=== PATIENT | female | born 1935 | race Caucasian/White ===

== ENCOUNTER 2022-06-26 15:38 | Inpatient (IN) | payer MEDICARE, BC ==
[~2022-06-26] VITALS: Ht 149.9 cm; Wt 44.9 kg
[2022-06-26 16:47] LABS: BASOPHILS # (AUTO) 0.1 X10'3 (0-0.2); BASOPHILS % (AUTO) 0.6 % (0-1); EOSINOPHILS # (AUTO) 0.1 X10'3 (0-0.9); HEMATOCRIT 43.9 % (35.0-45.0); HEMOGLOBIN 14.4 g/dl (12.0-16.0); LYMPHOCYTES # (AUTO) 3.7 X10'3 (1.1-4.8); LYMPHOCYTES % (AUTO) 32.7 % (21-51); MEAN CORPUSCULAR HEMOGLOBIN 31.8 PG (27.0-31.0); MEAN CORPUSCULAR HGB CONC 32.8 g/dL (33.0-36.5); MEAN CORPUSCULAR VOLUME 96.9 FL (78-98); MEAN PLATELET VOLUME 9.3 FL (7.4-10.4); MONOCYTES # (AUTO) 0.7 X10'3 (0-0.9); MONOCYTES % (AUTO) 5.8 % (2-12); NEUTROPHILS # (AUTO) 6.7 X10'3 (1.8-7.7); NEUTROPHILS % (AUTO) 59.9 % (42-75); PLATELET COUNT 157 X10'3 (140-440); RED BLOOD COUNT 4.54 X10'6 (4.20-5.60); RED CELL DISTRIBUTION WIDTH 14.7 % (11.5-14.5); WHITE BLOOD COUNT 11.2 X10'3 (4.5-11.0)
[2022-06-26 16:48] LABS: ALANINE AMINOTRANSFERASE 19 U/L (12-78); ALBUMIN 4.5 G/DL (3.4-5.0); ALBUMIN/GLOBULIN RATIO 1.7 (1.1-1.5); ALKALINE PHOSPHATASE 56 IU/L (46-116); ANION GAP 13 (8-16); ASPARTATE AMINO TRANSFERASE 25 U/L (10-37); BILIRUBIN,TOTAL 0.7 MG/DL (0.1-1.0); BLOOD UREA NITROGEN 19 MG/DL (7-18); BUN/CREATININE RATIO 32.2 (6.6-38.0); CALCIUM 9.5 MG/DL (8.5-10.1); CHLORIDE 103 MMOL/L (99-107); CREATININE 0.59 MG/DL (0.40-0.90); GLUCOSE 80 MG/DL (70-104); POTASSIUM 3.9 MMOL/L (3.5-5.1); SODIUM 140 MMOL/L (135-145); TOTAL CARBON DIOXIDE 23.7 MMOL/L (24-32); TOTAL PROTEIN 7.2 G/DL (6.4-8.2); eGFR > 90 ML/MIN
[2022-06-26 17:00] LABS: COLOR,URINE YELLOW (Yellow); GLUCOSE, URINE NEGATIVE (Neg); KETONES,URINE TRACE mg/dl (Neg); LEUKOCYTE ESTERASE ,URINE MODERATE (Neg); NITRITES, URINE POSITIVE (Neg); OCCULT BLOOD,URINE TRACE-INTACT (Neg); PH,URINE 5.5 (4.8-8.0); PROTEIN,URINE NEGATIVE (Neg); UROBILINOGEN,URINE 0.2 E.U/dL (0.2-1.0)
[2022-06-26 17:16] LABS: UA COLLECTION TYPE CLN CATCH MIDSTREAM
[2022-06-26 17:17] LABS: CLARITY,URINE CLOUDY (Clear)
[2022-06-26 17:18] LABS: BACTERIA,URINE 4+ /HPF (Neg); WBC,URINE 50-100 /HPF (0-4)
[2022-06-26 17:19] LABS: SQUAMOUS EPITHELIAL CELL,UR FEW /LPF (FEW); TRANSITIONAL EPI CELLS,URINE FEW /HPF
[2022-06-26] MEDS ORDERED: CefTRIAXone/D5W-Rocephin 1gm 50 ML IV ONE (17:25)
[2022-06-26] MEDS: normal saline 500ml IV soln 500 ML IV SCH ×2 (18:43→20:40)
[2022-06-26] MEDS ORDERED: acetaminophen 650mg rectal suppository RC PRN (19:40)
[2022-06-26] MEDS ORDERED: magnesium hydroxide 30ml (MOM) UD suspension PO PRN (19:40)
[2022-06-26] MEDS ORDERED: HYDROcodone/acetaminophen 5mg/325mg tablet PO PRN (19:40)
[2022-06-26] MEDS ORDERED: acetaminophen 325mg tablet PO PRN ×2 (19:40)
[2022-06-26] MEDS ORDERED: potassium Cl 40MEQ/1/2NS 520ml 520 ML IV PRN (19:40)
[2022-06-26] MEDS ORDERED: mag hydrox/Alum hydrox/simeth 30ml oral suspension PO PRN (19:40)
[2022-06-26] MEDS ORDERED: magnesium Cl slow-release 64mg tablet PO PRN (19:40)
[2022-06-26] MEDS ORDERED: magnesium 4gm in 100ml NS 100 ML IV PRN (19:40)
[2022-06-26] MEDS ORDERED: ondansetron/PF 4mg/2ml inj IV PRN (19:40)
[2022-06-26] MEDS ORDERED: potassium Cl 20 mEq SR tablet PO PRN ×2 (19:40)
[2022-06-26] MEDS ORDERED: ondansetron 4mg rapidly disintigrating tab PO PRN (19:40)
[2022-06-26] MEDS: K and/or MAG REPLACEMENT MC SCH (20:00)
[2022-06-26 20:02] LABS: CREATINE KINASE 55 U/L (26-192)
[2022-06-26] MEDS: normal saline 1000ml 1,000 ML IV SCH (21:27)
--- NOTE | 2022-06-27 02:18 | NUR ---
Assumed care of patient. Patient is asleep, resting comfortablly in bed, no signs of distress, no needs at this time.
[2022-06-27 04:38] LABS: BASOPHILS # (AUTO) 0.1 X10'3 (0-0.2); EOSINOPHILS # (AUTO) 0.2 X10'3 (0-0.9); HEMATOCRIT 39.6 % (35.0-45.0); MEAN CORPUSCULAR HEMOGLOBIN 31.8 PG (27.0-31.0); MEAN PLATELET VOLUME 8.5 FL (7.4-10.4); NEUTROPHILS # (AUTO) 6.6 X10'3 (1.8-7.7); RED BLOOD COUNT 4.09 X10'6 (4.20-5.60); RED CELL DISTRIBUTION WIDTH 14.7 % (11.5-14.5)
[2022-06-27 04:39] LABS: BASOPHILS % (AUTO) 0.5 % (0-1); EOSINOPHILS % (AUTO) 1.6 % (0-6); LYMPHOCYTES # (AUTO) 7.3 X10'3 (1.1-4.8); LYMPHOCYTES % (AUTO) 48.5 % (21-51); MEAN CORPUSCULAR HGB CONC 32.8 g/dL (33.0-36.5); MEAN CORPUSCULAR VOLUME 96.9 FL (78-98); MONOCYTES # (AUTO) 0.9 X10'3 (0-0.9); MONOCYTES % (AUTO) 5.7 % (2-12); NEUTROPHILS % (AUTO) 43.7 % (42-75); PLATELET COUNT 167 X10'3 (140-440)
[2022-06-27 04:53] LABS: ALANINE AMINOTRANSFERASE 17 U/L (12-78); ALBUMIN 3.6 G/DL (3.4-5.0); ALBUMIN/GLOBULIN RATIO 1.5 (1.1-1.5); ALKALINE PHOSPHATASE 48 IU/L (46-116); ANION GAP 8 (8-16); ASPARTATE AMINO TRANSFERASE 19 U/L (10-37); BILIRUBIN,TOTAL 0.8 MG/DL (0.1-1.0); BLOOD UREA NITROGEN 18 MG/DL (7-18); BUN/CREATININE RATIO 34.6 (6.6-38.0); CALCIUM 8.7 MG/DL (8.5-10.1); CHLORIDE 106 MMOL/L (99-107); CREATININE 0.52 MG/DL (0.40-0.90); GLUCOSE 77 MG/DL (70-104); MAGNESIUM 1.9 MG/DL (1.5-2.4); SODIUM 141 MMOL/L (135-145); TOTAL CARBON DIOXIDE 26.9 MMOL/L (24-32); eGFR > 90 ML/MIN
[2022-06-27 05:13] LABS: TOTAL CELLS COUNTED 100
[2022-06-27 05:14] LABS: PLATELET ESTIMATE NORMAL; SMUDGE CELLS 1+
--- NOTE | 2022-06-27 06:40 | NUR ---
Patient assisted on a bedside commode, BM x1.
[2022-06-27] MEDS: K and/or MAG REPLACEMENT MC SCH ×2 (07:16→20:00)
[2022-06-27] MEDS: CefTRIAXone/D5W-Rocephin 1gm 50 ML IV SCH (07:16)
[2022-06-27] MEDS: normal saline 1000ml 1,000 ML IV SCH ×2 (07:16→22:50)
--- NOTE | 2022-06-27 10:03 | NUR ---
Patietn asleep. We will monitor.
[2022-06-27 13:00] VITALS: BP 129/68
--- NOTE | 2022-06-27 13:20 | NUR ---
Pt recieved to 356B via WC from ER, VSS, new PIV placed, pt stable. EVARISTO nurse paged for admission marce
[2022-06-27 18:00] VITALS: BP 155/76
--- NOTE | 2022-06-27 18:00 | NUR ---
I have reviewed and agree with all interventions, assessments performed, and documentation by Chely Groves LVN.
--- NOTE | 2022-06-27 18:40 | NUR ---
Patient in room [facility] 356. I have received report from JOHN BELL and had the opportunity to ask questions and assume patient care.
[2022-06-27] MEDS: heparin, porcine 5000 units/ml vial SQ SCH (20:30)
[2022-06-27 22:00] VITALS: BP_SYST 147; BP_SYST 150; BP_DIAS 65; BP_DIAS 70
[2022-06-27 23:00] VITALS: BP 147/65
[2022-06-28 05:54] LABS: BASOPHILS # (AUTO) 0.1 X10'3 (0-0.2); BASOPHILS % (AUTO) 0.7 % (0-1); EOSINOPHILS # (AUTO) 0.2 X10'3 (0-0.9); EOSINOPHILS % (AUTO) 1.8 % (0-6); HEMATOCRIT 40.1 % (35.0-45.0); HEMOGLOBIN 13.2 g/dl (12.0-16.0); LYMPHOCYTES # (AUTO) 5.3 X10'3 (1.1-4.8); LYMPHOCYTES % (AUTO) 43.2 % (21-51); MEAN CORPUSCULAR HEMOGLOBIN 31.8 PG (27.0-31.0); MEAN CORPUSCULAR HGB CONC 32.9 g/dL (33.0-36.5); MEAN CORPUSCULAR VOLUME 96.8 FL (78-98); MEAN PLATELET VOLUME 9.5 FL (7.4-10.4); MONOCYTES % (AUTO) 7.9 % (2-12); NEUTROPHILS # (AUTO) 5.7 X10'3 (1.8-7.7); NEUTROPHILS % (AUTO) 46.4 % (42-75); PLATELET COUNT 150 X10'3 (140-440); RED BLOOD COUNT 4.14 X10'6 (4.20-5.60); RED CELL DISTRIBUTION WIDTH 14.5 % (11.5-14.5); WHITE BLOOD COUNT 12.2 X10'3 (4.5-11.0)
[2022-06-28 05:59] LABS: ALANINE AMINOTRANSFERASE 15 U/L (12-78); ALBUMIN 3.6 G/DL (3.4-5.0); ALBUMIN/GLOBULIN RATIO 1.4 (1.1-1.5); ALKALINE PHOSPHATASE 53 IU/L (46-116); ANION GAP 5 (8-16); ASPARTATE AMINO TRANSFERASE 25 U/L (10-37); BILIRUBIN,TOTAL 0.5 MG/DL (0.1-1.0); BLOOD UREA NITROGEN 16 MG/DL (7-18); CALCIUM 8.8 MG/DL (8.5-10.1); CHLORIDE 107 MMOL/L (99-107); GLUCOSE 113 MG/DL (70-104); MAGNESIUM 1.7 MG/DL (1.5-2.4); POTASSIUM 3.8 MMOL/L (3.5-5.1); SODIUM 139 MMOL/L (135-145); TOTAL CARBON DIOXIDE 26.9 MMOL/L (24-32); TOTAL PROTEIN 6.1 G/DL (6.4-8.2); eGFR > 90 ML/MIN
[2022-06-28 06:23] VITALS: BP 140/60
--- NOTE | 2022-06-28 06:27 | NUR ---
Problems reprioritized. Patient report given, questions answered & plan of care reviewed with JOSE DANIEL INIGUEZ.
--- NOTE | 2022-06-28 06:44 | NUR ---
Patient in room [facility] 356. I have received report from Antwan INIGUEZ and had the opportunity to ask questions and assume patient care.
[2022-06-28 08:00] VITALS: BP_SYST 130; BP_SYST 144; BP_DIAS 55; BP_DIAS 60
[2022-06-28] MEDS: K and/or MAG REPLACEMENT MC SCH ×2 (08:00→19:57)
[2022-06-28] MEDS: CefTRIAXone/D5W-Rocephin 1gm 50 ML IV SCH (08:12)
[2022-06-28] MEDS: heparin, porcine 5000 units/ml vial SQ SCH (08:13)
[2022-06-28 10:23] VITALS: BP 144/69
--- NOTE | 2022-06-28 12:13 | NUR ---
Noted pt BMI 20.0 via standing scaled wt this admit; no prior scaled wt hx though pt appears WD/WN per ER note; likely maintains stable underweight status at baseline given advanced age. Addendum: 06/28/22 at [address] Amended: Links added.
[2022-06-28] MEDS ORDERED: APIX2.5T PO (14:01)
[2022-06-28] MEDS ORDERED: ATOR40TA72 PO (14:01)
[2022-06-28] MEDS ORDERED: CEFU500T66 PO (14:01)
[2022-06-28] MEDS ORDERED: CITA20TA26 PO (14:01)
[2022-06-28] MEDS ORDERED: AMLO5TAB16 PO (14:01)
[2022-06-28] MEDS ORDERED: OXYB5TAB16 PO (14:01)
[2022-06-28] MEDS: normal saline 1000ml 1,000 ML IV SCH (14:46)
[2022-06-28] MEDS: phenazopyridine 100mg tablet PO SCH ×2 (14:46→18:10)
--- NOTE | 2022-06-28 15:40 | NUR ---
Reviewed Herminia BELL Physical Assessment and agree with findings.
[2022-06-28 18:00] VITALS: BP_SYST 152; BP_SYST 163; BP_DIAS 67; BP_DIAS 76
--- NOTE | 2022-06-28 18:31 | NUR ---
Problems reprioritized. Patient report given, questions answered & plan of care reviewed with Antwan INIGUEZ.
--- NOTE | 2022-06-28 18:35 | NUR ---
Patient in room [facility] 356. I have received report from JOSE DANIEL INIGUEZ and had the opportunity to ask questions and assume patient care.
[2022-06-28] MEDS: oxybutynin 5mg tablet PO SCH (19:47)
[2022-06-28] MEDS: apixaban 2.5mg tablet PO SCH (19:47)
[2022-06-28 22:00] VITALS: BP 158/66
[2022-06-29] MEDS: normal saline 1000ml 1,000 ML IV SCH (03:31)
[2022-06-29 06:02] LABS: BASOPHILS # (AUTO) 0.1 X10'3 (0-0.2); BASOPHILS % (AUTO) 0.8 % (0-1); EOSINOPHILS # (AUTO) 0.3 X10'3 (0-0.9); EOSINOPHILS % (AUTO) 2.5 % (0-6); HEMATOCRIT 39.1 % (35.0-45.0); HEMOGLOBIN 12.9 g/dl (12.0-16.0); LYMPHOCYTES # (AUTO) 4.7 X10'3 (1.1-4.8); MEAN CORPUSCULAR HEMOGLOBIN 32.1 PG (27.0-31.0); MEAN PLATELET VOLUME 9.2 FL (7.4-10.4); MONOCYTES # (AUTO) 0.8 X10'3 (0-0.9); MONOCYTES % (AUTO) 7.2 % (2-12); NEUTROPHILS # (AUTO) 5.6 X10'3 (1.8-7.7); NEUTROPHILS % (AUTO) 48.5 % (42-75); PLATELET COUNT 144 X10'3 (140-440); RED BLOOD COUNT 4.03 X10'6 (4.20-5.60); RED CELL DISTRIBUTION WIDTH 14.8 % (11.5-14.5); WHITE BLOOD COUNT 11.5 X10'3 (4.5-11.0)
[2022-06-29 06:20] LABS: ALANINE AMINOTRANSFERASE 18 U/L (12-78); ALBUMIN 3.6 G/DL (3.4-5.0); ALBUMIN/GLOBULIN RATIO 1.5 (1.1-1.5); ALKALINE PHOSPHATASE 43 IU/L (46-116); ANION GAP 7 (8-16); ASPARTATE AMINO TRANSFERASE 20 U/L (10-37); BILIRUBIN,TOTAL 0.5 MG/DL (0.1-1.0); BLOOD UREA NITROGEN 10 MG/DL (7-18); BUN/CREATININE RATIO 24.4 (6.6-38.0); CALCIUM 8.9 MG/DL (8.5-10.1); CHLORIDE 109 MMOL/L (99-107); CREATININE 0.41 MG/DL (0.40-0.90); GLUCOSE 85 MG/DL (70-104); MAGNESIUM 1.7 MG/DL (1.5-2.4); POTASSIUM 3.7 MMOL/L (3.5-5.1); SODIUM 143 MMOL/L (135-145); TOTAL CARBON DIOXIDE 27.5 MMOL/L (24-32); eGFR > 90 ML/MIN
--- NOTE | 2022-06-29 06:25 | NUR ---
Problems reprioritized. Patient report given, questions answered & plan of care reviewed with JOSE DANIEL INIGUEZ.
--- NOTE | 2022-06-29 06:36 | NUR ---
Patient in room [facility] 356. I have received report from Maegan Issa RN and had the opportunity to ask questions and assume patient care.
[2022-06-29 07:07] VITALS: BP 180/70
[2022-06-29] MEDS: citalopram 20mg tablet PO SCH (07:53)
[2022-06-29] MEDS: atorvastatin 20mg tablet PO SCH (07:53)
[2022-06-29] MEDS: CefTRIAXone/D5W-Rocephin 1gm 50 ML IV SCH (07:53)
[2022-06-29] MEDS: phenazopyridine 100mg tablet PO SCH ×3 (07:54→17:59)
[2022-06-29] MEDS: amLODIPine 5mg tablet PO SCH (07:54)
[2022-06-29] MEDS: apixaban 2.5mg tablet PO SCH ×2 (07:54→19:48)
[2022-06-29] MEDS: oxybutynin 5mg tablet PO SCH ×2 (07:54→19:48)
[2022-06-29] MEDS: memantine 5mg tablet PO SCH (07:55)
[2022-06-29] MEDS: K and/or MAG REPLACEMENT MC SCH ×2 (08:00→20:00)
[2022-06-29] MEDS ORDERED: hydrALAZINE 20mg/ml inj. IV PRN (08:15)
[2022-06-29 10:00] VITALS: BP 113/59
--- NOTE | 2022-06-29 11:30 | NUR ---
Initial: Pt admit DX metabolic encephalopathy secondary to UTI, chronic dementia, and afib per EMR. PO ~63% avg initial regular diet meeting estimated needs. LBM 2/. No nutrition interventions at this time. Will continue to follow. Rec: 1. continue regular diet; encourage PO; assistance w/ meals PRN 2. routine bowel care 3. weekly wts Addendum: 06/29/22 at [address] Amended: Links added.
[2022-06-29 18:00] VITALS: BP 120/86
--- NOTE | 2022-06-29 18:40 | NUR ---
Problems reprioritized. Patient report given, questions answered & plan of care reviewed with Maegan Issa RN.
[2022-06-29 20:00] VITALS: BP 120/86
[2022-06-29 22:00] VITALS: BP 133/51
[2022-06-30 05:11] LABS: BASOPHILS # (AUTO) 0.1 X10'3 (0-0.2); BASOPHILS % (AUTO) 0.6 % (0-1); EOSINOPHILS # (AUTO) 0.3 X10'3 (0-0.9); EOSINOPHILS % (AUTO) 3.2 % (0-6); HEMATOCRIT 36.3 % (35.0-45.0); HEMOGLOBIN 12.1 g/dl (12.0-16.0); LYMPHOCYTES # (AUTO) 5.3 X10'3 (1.1-4.8); LYMPHOCYTES % (AUTO) 49.7 % (21-51); MEAN CORPUSCULAR HEMOGLOBIN 32.3 PG (27.0-31.0); MEAN CORPUSCULAR HGB CONC 33.4 g/dL (33.0-36.5); MEAN CORPUSCULAR VOLUME 96.7 FL (78-98); MEAN PLATELET VOLUME 8.8 FL (7.4-10.4); MONOCYTES # (AUTO) 0.8 X10'3 (0-0.9); MONOCYTES % (AUTO) 7.6 % (2-12); NEUTROPHILS # (AUTO) 4.2 X10'3 (1.8-7.7); NEUTROPHILS % (AUTO) 38.9 % (42-75); PLATELET COUNT 147 X10'3 (140-440); RED BLOOD COUNT 3.75 X10'6 (4.20-5.60); RED CELL DISTRIBUTION WIDTH 14.7 % (11.5-14.5); WHITE BLOOD COUNT 10.7 X10'3 (4.5-11.0)
[2022-06-30 05:23] LABS: ALANINE AMINOTRANSFERASE 20 U/L (12-78); ALBUMIN 3.2 G/DL (3.4-5.0); ALBUMIN/GLOBULIN RATIO 1.5 (1.1-1.5); ALKALINE PHOSPHATASE 41 IU/L (46-116); ANION GAP 7 (8-16); ASPARTATE AMINO TRANSFERASE 21 U/L (10-37); BILIRUBIN,TOTAL 0.4 MG/DL (0.1-1.0); BLOOD UREA NITROGEN 14 MG/DL (7-18); BUN/CREATININE RATIO 21.9 (6.6-38.0); CALCIUM 9.1 MG/DL (8.5-10.1); CHLORIDE 107 MMOL/L (99-107); CREATININE 0.64 MG/DL (0.40-0.90); GLUCOSE 95 MG/DL (70-104); MAGNESIUM 1.7 MG/DL (1.5-2.4); POTASSIUM 4.1 MMOL/L (3.5-5.1); SODIUM 141 MMOL/L (135-145); TOTAL CARBON DIOXIDE 27.1 MMOL/L (24-32); TOTAL PROTEIN 5.4 G/DL (6.4-8.2); eGFR 88 ML/MIN
[2022-06-30] MEDS: normal saline 1000ml 1,000 ML IV SCH (06:07)
--- NOTE | 2022-06-30 06:20 | NUR ---
Patient in room [facility] 356. I have received report from Alisa INIGUEZ and had the opportunity to ask questions and assume patient care.
[2022-06-30 06:27] VITALS: BP 135/62
[2022-06-30] MEDS: K and/or MAG REPLACEMENT MC SCH (08:00)
[2022-06-30] MEDS: memantine 5mg tablet PO SCH (08:14)
[2022-06-30] MEDS: atorvastatin 20mg tablet PO SCH (08:14)
[2022-06-30] MEDS: phenazopyridine 100mg tablet PO SCH (08:14)
[2022-06-30] MEDS: citalopram 20mg tablet PO SCH (08:14)
[2022-06-30] MEDS: oxybutynin 5mg tablet PO SCH (08:14)
[2022-06-30] MEDS: apixaban 2.5mg tablet PO SCH (08:14)
[2022-06-30] MEDS: amLODIPine 5mg tablet PO SCH (08:15)
[2022-06-30] MEDS: CefTRIAXone/D5W-Rocephin 1gm 50 ML IV SCH (08:43)
[2022-06-30 11:02] VITALS: BP 114/53
--- NOTE | 2022-06-30 14:39 | NUR ---
CIRCUS TRAIN SUPERVISOR documentation: I have reviewed and agree with all interventions, assessments performed and documented by Corine Rasheed LVN .
--- NOTE | 2022-06-30 15:54 | NUR ---
Called report to Wilma at [facility]. Patient is dressed and all belongings were gathered. Patient alert and stable for transfer. Patient left with [facility] personnel in the [facility]. Tele and IV removed
== END 2022-06-30 15:50 | DRG 871 ==
LOC: ER 15:39 → ED HOLD 19:43 → SUR 3N 06-27 13:01
PROVIDERS: ADMIT Family Medicine; ATTEND Family Medicine
DX: A41.9 Sepsis, unspecified organism (principal); G93.41 Metabolic encephalopathy; I48.20 Chronic atrial fibrillation, unspecified; N30.01 Acute cystitis with hematuria; B96.1 Klebsiella pneumoniae [K. pneumoniae] as the cause of diseases classified elsewhere; E78.5 Hyperlipidemia, unspecified; F32.A Depression, unspecified; I10 Essential (primary) hypertension; W18.39XA Other fall on same level, initial encounter; F03.90 Unspecified dementia, unspecified severity, without behavioral disturbance, psychotic disturbance, mood disturbance, and anxiety; N39.41 Urge incontinence; Z79.01 Long term (current) use of anticoagulants; Z85.3 Personal history of malignant neoplasm of breast; Z86.73 Personal history of transient ischemic attack (TIA), and cerebral infarction without residual deficits; Z95.0 Presence of cardiac pacemaker; Z88.2 Allergy status to sulfonamides; Z79.899 Other long term (current) drug therapy; Y93.89 Activity, other specified; Y92.098 Other place in other non-institutional residence as the place of occurrence of the external cause; Y99.8 Other external cause status
CPT/HCPCS: 36415; 70450; 71045; 80053; 81001; 82550; 82948; 83605; 83735; 84145; 84484; 85007; 85025; 87040; 87077; 87088; 87186; 93005; 97116; 97161; 97530; 99285; A6258; G0378; J0696; J1644; J7030; J7040

== ENCOUNTER 2023-02-22 15:08 | Inpatient (IN) | payer MEDICARE, BC ==
[~2023-02-22] VITALS: Ht 157.5 cm; Wt 45.5 kg
[~2023-02-22 15:08] MED LIST: AMLO5TAB16 PO; APIX2.5T PO; ATOR40TA72 PO; CITA20TA26 PO; OXYB5TAB16 PO
[2023-02-22 17:43] LABS: BASOPHILS % (AUTO) 0.2 % (0-1); EOSINOPHILS # (AUTO) 0.2 X10'3 (0-0.9); NEUTROPHILS # (AUTO) 8.5 X10'3 (1.8-7.7)
[2023-02-22 17:45] LABS: EOSINOPHILS % (AUTO) 1.4 % (0-6); HEMATOCRIT 36.3 % (35.0-45.0); HEMOGLOBIN 12.1 g/dl (12.0-16.0); LYMPHOCYTES # (AUTO) 5.9 X10'3 (1.1-4.8); LYMPHOCYTES % (AUTO) 37.6 % (21-51); MEAN CORPUSCULAR HEMOGLOBIN 29.6 PG (27.0-31.0); MEAN CORPUSCULAR HGB CONC 33.3 g/dL (33.0-36.5); MEAN CORPUSCULAR VOLUME 88.8 FL (78-98); MEAN PLATELET VOLUME 9.4 FL (7.4-10.4); MONOCYTES % (AUTO) 6.4 % (2-12); NEUTROPHILS % (AUTO) 54.4 % (42-75); PLATELET COUNT 145 X10'3 (140-440); RED BLOOD COUNT 4.08 X10'6 (4.20-5.60); WHITE BLOOD COUNT 15.6 X10'3 (4.5-11.0)
[2023-02-22 17:49] LABS: APTT 35 SECONDS (22-32); PROTHROMBIN TIME 10.6 SECONDS (9.0-12.0)
[2023-02-22 17:52] LABS: ALANINE AMINOTRANSFERASE 18 U/L (12-78); ALBUMIN 3.1 G/DL (3.4-5.0); ALBUMIN/GLOBULIN RATIO 1.1 (1.1-1.5); ALKALINE PHOSPHATASE 54 IU/L (46-116); ANION GAP 5 (8-16); ASPARTATE AMINO TRANSFERASE 18 U/L (10-37); BILIRUBIN,TOTAL 0.6 MG/DL (0.1-1.0); BLOOD UREA NITROGEN 16 MG/DL (7-18); BUN/CREATININE RATIO 24.6 (10.0-20.0); CALCIUM 8.9 MG/DL (8.5-10.1); CHLORIDE 102 MMOL/L (99-107); CREATININE 0.65 MG/DL (0.40-0.90); GLUCOSE 95 MG/DL (70-104); POTASSIUM 3.1 MMOL/L (3.5-5.1); SODIUM 136 MMOL/L (135-145); TOTAL PROTEIN 5.8 G/DL (6.4-8.2); eCRCL 43 ML/MIN; eGFR 86 ML/MIN
[2023-02-22 17:55] LABS: TROPONIN I HS, 0 HR 15 ng/L (4-50)
[2023-02-22] MEDS ORDERED: potassium chloride 8mEq ER tablet PO STA (18:25)
--- NOTE | 2023-02-22 18:30 | NUR ---
Patient resting in bed quietly with eyes open speaking with her daughter present at bedside. Pt in no acute distress. Respirations are even and unlabored.
[2023-02-22] MEDS ORDERED: normal saline 1000ml 1,000 ML IV ONE (20:25)
[2023-02-22] MEDS ORDERED: mag hydrox/Alum hydrox/simeth 30ml oral suspension PO PRN (20:45)
[2023-02-22] MEDS ORDERED: magnesium 2GM in 50ml NS 50 ML IV PRN (20:45)
[2023-02-22] MEDS ORDERED: magnesium hydroxide 30ml (MOM) UD suspension PO PRN (20:45)
[2023-02-22] MEDS ORDERED: potassium Cl 40MEQ/1/2NS 520ml 520 ML IV PRN (20:45)
[2023-02-22] MEDS ORDERED: magnesium 4gm in 100ml NS 100 ML IV PRN (20:45)
[2023-02-22] MEDS ORDERED: potassium Cl 20 mEq SR tablet PO PRN ×2 (20:45)
[2023-02-22] MEDS ORDERED: ondansetron/PF 4mg/2ml inj IV PRN (20:45)
[2023-02-22] MEDS ORDERED: magnesium Cl slow-release 64mg tablet PO PRN (20:45)
--- NOTE | 2023-02-22 21:30 | NUR ---
Patient resting in bed quietly with eyes open. Respirations are even and unlabored. Pt in no acute distress.
[2023-02-22] MEDS: potassium Cl 20mEq in NS 1,000 ML IV SCH (21:47)
--- NOTE | 2023-02-22 23:14 | NUR ---
PATIENT PLACED IN A HOSPITAL BED APPEARS TO BE RESTING COMFORTABLY NO NEEDS WHEN ASKED AT THIS TIME
--- NOTE | 2023-02-23 01:58 | NUR ---
Patient assisted to bedside commode. Patient placed back in bed. Pt resting quietly with eyes closed. Respirations are even and unlabored. Pt in no acute distress.
--- NOTE | 2023-02-23 03:47 | NUR ---
Patient resting in bed quietly with eyes closed. Respirations are even and unlabored. Pt in no acute distress.
--- NOTE | 2023-02-23 05:15 | NUR ---
Patient assisted to bedside commode by RN. Patient placed back into bed. Pt resting in bed with eyes closed. Pt in no acute distress. Respirations are even and unlabored.
[2023-02-23 06:57] LABS: C DIFF ANTIGEN POSITIVE (NEGATIVE); C DIFF SPECIMEN=DIARRHEA? ACCEPTABLE; C DIFFICILE TOXINS A&B POSITIVE (Neg)
--- NOTE | 2023-02-23 07:01 | NUR ---
Attempted to put a new peripheral IV x 2 without success. Patient requested another nurse to put an IV.
--- NOTE | 2023-02-23 07:08 | NUR ---
Note griselda in EDM - 02/23/23 at [address] Landaverde regarding positive C-diff result. received order to administer Vancomycin 125 mg PO x 1 for now. She said the will figure out the frequency of this drug
[2023-02-23] MEDS ORDERED: vancomycin 125mg/5ml ORAL solution 5ml UD oral syringe PO SCH (07:15)
--- NOTE | 2023-02-23 07:16 | NUR ---
Patient was notified that she has c-diff. I did explained to her that we will continue the isolation precaution and that c-diff is contagious.
[2023-02-23 07:46] LABS: BASOPHILS % (AUTO) 0.3 % (0-1); EOSINOPHILS # (AUTO) 0.1 X10'3 (0-0.9); EOSINOPHILS % (AUTO) 0.6 % (0-6); HEMATOCRIT 39.9 % (35.0-45.0); HEMOGLOBIN 13.1 g/dl (12.0-16.0); MEAN CORPUSCULAR HEMOGLOBIN 29.6 PG (27.0-31.0); MEAN CORPUSCULAR HGB CONC 32.8 g/dL (33.0-36.5); MEAN CORPUSCULAR VOLUME 90.2 FL (78-98); MEAN PLATELET VOLUME 9.2 FL (7.4-10.4); MONOCYTES # (AUTO) 1.6 X10'3 (0-0.9); MONOCYTES % (AUTO) 9.2 % (2-12); NEUTROPHILS % (AUTO) 72.9 % (42-75); PLATELET COUNT 180 X10'3 (140-440); RED BLOOD COUNT 4.42 X10'6 (4.20-5.60); RED CELL DISTRIBUTION WIDTH 15.1 % (11.5-14.5); WHITE BLOOD COUNT 17.7 X10'3 (4.5-11.0)
[2023-02-23] MEDS: docusate sod 100mg capsule PO SCH ×2 (07:47→20:00)
[2023-02-23] MEDS ORDERED: vancomycin 125mg/5ml ORAL solution 5ml UD oral syringe PO ONE (07:50)
[2023-02-23] MEDS: potassium Cl 20mEq in NS 1,000 ML IV SCH ×2 (08:13→16:45)
[2023-02-23 08:16] LABS: ALANINE AMINOTRANSFERASE 13 U/L (12-78); ALBUMIN 3.4 G/DL (3.4-5.0); ALBUMIN/GLOBULIN RATIO 1.1 (1.1-1.5); ALKALINE PHOSPHATASE 64 IU/L (46-116); ANION GAP 12 (8-16); ASPARTATE AMINO TRANSFERASE 22 U/L (10-37); BILIRUBIN,TOTAL 0.7 MG/DL (0.1-1.0); BLOOD UREA NITROGEN 12 MG/DL (7-18); BUN/CREATININE RATIO 16.4 (10.0-20.0); CALCIUM 8.8 MG/DL (8.5-10.1); CHLORIDE 104 MMOL/L (99-107); CREATININE 0.73 MG/DL (0.40-0.90); GLUCOSE 73 MG/DL (70-104); MAGNESIUM 1.8 MG/DL (1.5-2.4); POTASSIUM 3.5 MMOL/L (3.5-5.1); SODIUM 137 MMOL/L (135-145); TOTAL CARBON DIOXIDE 21.2 MMOL/L (24-32); TOTAL PROTEIN 6.4 G/DL (6.4-8.2); eCRCL 38 ML/MIN; eGFR 75 ML/MIN
[2023-02-23] MEDS: K and/or MAG REPLACEMENT MC SCH ×2 (12:17→20:00)
[2023-02-23] MEDS ORDERED: LORazepam 2 mg/ml vial IV ONE (12:30)
[2023-02-23] MEDS ORDERED: FLEC50TA28 PO (12:41)
[2023-02-23] MEDS ORDERED: MEMA7CAP2 PO (12:42)
--- NOTE | 2023-02-23 13:20 | NUR ---
Patient repeatedly going out of her room to go public restroom to have bm. Patient repeatedly told that she cant use public restroom due to c.diff. Patient frequently need to be reminded to get back to her room and use her bedside commode instead to prevent Addendum: 02/23/23 at 1431 by NANCY to prevent spreading the c-diff infection to others
[2023-02-23] MEDS: vancomycin 125mg/5ml ORAL solution 5ml UD oral syringe PO SCH ×2 (14:00→20:12)
--- NOTE | 2023-02-23 14:30 | NUR ---
Patient currently sleeping at this time, breathing unlabored. Daughter at bedside.
--- NOTE | 2023-02-23 16:54 | NUR ---
Called Dr. Landaverde about concern that if I put patient back to IV fluid, her IV might get pulled out again as I noticed patient's IV got out twice when she was in her room trying to leave her room and wander around. Per Dr. Landaverde, okay to leave her off from IVF running temporarily but will need to be hooked back if patient started having more diarrhea
[2023-02-23] MEDS ORDERED: LORazepam 2 mg/ml vial IV PRN (21:40)
[2023-02-23 22:51] LABS: BILIRUBIN,URINE NEGATIVE (Neg); CLARITY,URINE SLIGHTLY CLOUDY (Clear); COLOR,URINE YELLOW (Yellow); GLUCOSE, URINE NEGATIVE (Neg); KETONES,URINE 15 mg/dl (Neg); LEUKOCYTE ESTERASE ,URINE SMALL (Neg); NITRITES, URINE POSITIVE (Neg); OCCULT BLOOD,URINE MODERATE (Neg); PH,URINE 5.5 (4.8-8.0); PROTEIN,URINE TRACE mg/dl (Neg); UROBILINOGEN,URINE 0.2 E.U/dL (0.2-1.0)
[2023-02-23 23:26] LABS: UA COLLECTION TYPE STRAIGHT CATH
[2023-02-23 23:40] LABS: SQUAMOUS EPITHELIAL CELL,UR MODERATE /LPF (FEW)
[2023-02-23 23:41] LABS: BACTERIA,URINE 3+ /HPF (Neg); RBC,URINE 0-2 /HPF (0-2); WBC,URINE 20-30 /HPF (0-4)
[2023-02-23 23:42] LABS: RENAL CELLS, URINE FEW /HPF; TRANSITIONAL EPI CELLS,URINE FEW /HPF
[2023-02-24] MEDS: vancomycin 125mg/5ml ORAL solution 5ml UD oral syringe PO SCH ×4 (01:55→19:55)
[2023-02-24] MEDS: acetaminophen 325mg tablet PO PRN ×2 (01:56→02:10)
[2023-02-24] MEDS ORDERED: acetaminophen 1,000mg/100ml IV 100 ML IV ONE (02:30)
--- NOTE | 2023-02-24 02:32 | NUR ---
pt febrile, attempted to admin oral tylenol. pt uncoorperative, confused and refusing medication. pt incontinent of stool d/t c diff, so rectal tylenol not feasibole. called dr rodas and recieved order for 1gram IV acetaminophen once for fever.
[2023-02-24 03:48] LABS: BASOPHILS % (AUTO) 0.2 % (0-1); EOSINOPHILS # (AUTO) 0.1 X10'3 (0-0.9); EOSINOPHILS % (AUTO) 0.9 % (0-6); HEMOGLOBIN 11.2 g/dl (12.0-16.0); LYMPHOCYTES % (AUTO) 15.4 % (21-51); MEAN CORPUSCULAR HEMOGLOBIN 29.2 PG (27.0-31.0); MEAN CORPUSCULAR HGB CONC 32.9 g/dL (33.0-36.5); MEAN CORPUSCULAR VOLUME 88.8 FL (78-98); MEAN PLATELET VOLUME 9.2 FL (7.4-10.4); MONOCYTES # (AUTO) 1.4 X10'3 (0-0.9); MONOCYTES % (AUTO) 11.1 % (2-12); NEUTROPHILS # (AUTO) 9.3 X10'3 (1.8-7.7); NEUTROPHILS % (AUTO) 72.4 % (42-75); PLATELET COUNT 150 X10'3 (140-440); RED BLOOD COUNT 3.84 X10'6 (4.20-5.60); RED CELL DISTRIBUTION WIDTH 14.8 % (11.5-14.5); WHITE BLOOD COUNT 12.8 X10'3 (4.5-11.0)
[2023-02-24 03:58] LABS: ALANINE AMINOTRANSFERASE 15 U/L (12-78); ALBUMIN 2.5 G/DL (3.4-5.0); ALKALINE PHOSPHATASE 45 IU/L (46-116); ANION GAP 9 (8-16); ASPARTATE AMINO TRANSFERASE 25 U/L (10-37); BILIRUBIN,TOTAL 0.5 MG/DL (0.1-1.0); BLOOD UREA NITROGEN 7 MG/DL (7-18); BUN/CREATININE RATIO 15.9 (10.0-20.0); CALCIUM 7.9 MG/DL (8.5-10.1); CHLORIDE 105 MMOL/L (99-107); CREATININE 0.44 MG/DL (0.40-0.90); GLUCOSE 106 MG/DL (70-104); MAGNESIUM 1.7 MG/DL (1.5-2.4); SODIUM 137 MMOL/L (135-145); TOTAL CARBON DIOXIDE 23.1 MMOL/L (24-32); TOTAL PROTEIN 4.9 G/DL (6.4-8.2); eCRCL 63 ML/MIN; eGFR > 90 ML/MIN
[2023-02-24] MEDS: potassium Cl 20mEq in NS 1,000 ML IV SCH ×3 (04:00→19:56)
[2023-02-24] MEDS: potassium Cl 40MEQ/1/2NS 520ml 520 ML IV SCH ×2 (05:50→10:29)
[2023-02-24] MEDS: K and/or MAG REPLACEMENT MC SCH ×2 (07:29→20:00)
[2023-02-24] MEDS: docusate sod 100mg capsule PO SCH (07:31)
[2023-02-24 09:00] VITALS: BP 132/62; PULSE 66; RESP 15; TEMP 98; O2SAT 97
[2023-02-24 09:06] VITALS: RESP 15; O2SAT 97
[2023-02-24 10:00] VITALS: BP 131/64; PULSE 101; RESP 14; TEMP 97.6; O2SAT 96
[2023-02-24] MEDS ORDERED: potassium Cl 20 mEq SR tablet PO PRN ×2 (10:25)
[2023-02-24] MEDS ORDERED: potassium Cl 40MEQ/1/2NS 520ml 520 ML IV PRN (10:25)
[2023-02-24] MEDS ORDERED: magnesium 2GM in 50ml NS 50 ML IV PRN (10:25)
[2023-02-24] MEDS ORDERED: magnesium 4gm in 100ml NS 100 ML IV PRN (10:25)
[2023-02-24] MEDS ORDERED: magnesium Cl slow-release 64mg tablet PO PRN (10:25)
--- NOTE | 2023-02-24 11:07 | NUR ---
Malnutrition consult: Pt unsure of wt loss though with decreased appetite/PO intake per malnutrition risk screen with RN. Per EMR pt A/O x 1 and confused with dementia. Pt with scaled wt h/o 44.91 kg 06/27, current documented wt is 45.45 kg though not scaled. If accurate this would be slight wt gain of 0.54 kg. Pt currently on a heart healthy diet, documented to have refused first meal. Pt with no documented significant decrease in muscle strength or edema. Pt currently lacks a minimum of two criteria for malnutrition though will continue to follow closely and monitor s/s of malnutrition. Addendum: 02/24/23 at [address] Amended: Links added.
[2023-02-24] MEDS: CefTRIAXone/D5W-Rocephin 1gm 50 ML IV SCH (11:49)
[2023-02-24] MEDS: citalopram 20mg tablet PO SCH (15:10)
[2023-02-24] MEDS: memantine hcl 7mg SR capsule (24-hr) PO SCH (15:10)
[2023-02-24] MEDS: amLODIPine 5mg tablet PO SCH (15:10)
[2023-02-24 18:00] VITALS: BP 131/56; PULSE 70; RESP 16; TEMP 98.5; O2SAT 95
--- NOTE | 2023-02-24 18:20 | NUR ---
Patient in room [facility] 4017. I have received report from Pia INIGUEZ and had the opportunity to ask questions and assume patient care.
--- NOTE | 2023-02-24 18:20 | NUR ---
Report given to Nithya INIGUEZ, pt resting comfortably in bed. She ate some dinner but states it is very different then what she normally eats. No distress noted at this time. Daughter says she will return before visiting hours are over.
[2023-02-24] MEDS: oxybutynin 5mg tablet PO SCH (19:55)
[2023-02-24] MEDS: atorvastatin 20mg tablet PO SCH (19:55)
[2023-02-24] MEDS: apixaban 2.5mg tablet PO SCH (19:55)
[2023-02-24] MEDS: flecainide 50mg tablet PO SCH (19:55)
[2023-02-24 22:00] VITALS: BP 131/67; PULSE 92; RESP 18; TEMP 97.9; O2SAT 95
[2023-02-25] VITALS (7 sets, daily range): BP systolic 116–132; BP diastolic 66–87; PULSE 86–106; RESP 12–22; TEMP 97.5–98.7; O2SAT 93–97
[2023-02-25] MEDS: vancomycin 125mg/5ml ORAL solution 5ml UD oral syringe PO SCH ×4 (02:28→20:57)
[2023-02-25] MEDS: potassium Cl 20mEq in NS 1,000 ML IV SCH ×2 (03:50→14:43)
--- NOTE | 2023-02-25 06:12 | NUR ---
Problems reprioritized. Patient report given, questions answered & plan of care reviewed with Pia INIGUEZ.
[2023-02-25] MEDS: K and/or MAG REPLACEMENT MC SCH ×2 (08:00→20:00)
[2023-02-25 08:04] LABS: BASOPHILS # (AUTO) 0.1 X10'3 (0-0.2); BASOPHILS % (AUTO) 0.5 % (0-1); EOSINOPHILS # (AUTO) 0.2 X10'3 (0-0.9); EOSINOPHILS % (AUTO) 1.3 % (0-6); HEMATOCRIT 38.1 % (35.0-45.0); HEMOGLOBIN 12.7 g/dl (12.0-16.0); LYMPHOCYTES # (AUTO) 3.8 X10'3 (1.1-4.8); LYMPHOCYTES % (AUTO) 24.8 % (21-51); MEAN CORPUSCULAR HEMOGLOBIN 29.5 PG (27.0-31.0); MEAN CORPUSCULAR HGB CONC 33.3 g/dL (33.0-36.5); MEAN CORPUSCULAR VOLUME 88.7 FL (78-98); MEAN PLATELET VOLUME 9.7 FL (7.4-10.4); MONOCYTES # (AUTO) 1.1 X10'3 (0-0.9); MONOCYTES % (AUTO) 7.1 % (2-12); NEUTROPHILS # (AUTO) 10.2 X10'3 (1.8-7.7); NEUTROPHILS % (AUTO) 66.3 % (42-75); PLATELET COUNT 178 X10'3 (140-440); WHITE BLOOD COUNT 15.4 X10'3 (4.5-11.0)
[2023-02-25 08:09] LABS: ALANINE AMINOTRANSFERASE 12 U/L (12-78); ALBUMIN 2.5 G/DL (3.4-5.0); ALKALINE PHOSPHATASE 52 IU/L (46-116); ANION GAP 6 (8-16); ASPARTATE AMINO TRANSFERASE 19 U/L (10-37); BILIRUBIN,TOTAL 0.5 MG/DL (0.1-1.0); BLOOD UREA NITROGEN 2 MG/DL (7-18); BUN/CREATININE RATIO 4.3 (10.0-20.0); CALCIUM 8.2 MG/DL (8.5-10.1); CHLORIDE 107 MMOL/L (99-107); CREATININE 0.46 MG/DL (0.40-0.90); GLUCOSE 87 MG/DL (70-104); MAGNESIUM 1.6 MG/DL (1.5-2.4); POTASSIUM 4.1 MMOL/L (3.5-5.1); SODIUM 137 MMOL/L (135-145); TOTAL CARBON DIOXIDE 24.5 MMOL/L (24-32); eCRCL 61 ML/MIN; eGFR > 90 ML/MIN
[2023-02-25] MEDS ORDERED: memantine 5mg tablet PO SCH (09:06)
[2023-02-25] MEDS: citalopram 20mg tablet PO SCH (09:07)
[2023-02-25] MEDS: apixaban 2.5mg tablet PO SCH ×2 (09:07→20:56)
[2023-02-25] MEDS: flecainide 50mg tablet PO SCH ×2 (09:07→20:54)
[2023-02-25] MEDS: CefTRIAXone/D5W-Rocephin 1gm 50 ML IV SCH (09:07)
[2023-02-25] MEDS: oxybutynin 5mg tablet PO SCH ×2 (09:08→20:55)
[2023-02-25] MEDS: amLODIPine 5mg tablet PO SCH (09:08)
[2023-02-25] MEDS: memantine hcl 7mg SR capsule (24-hr) PO SCH (10:31)
--- NOTE | 2023-02-25 11:52 | NUR ---
Pt's daughter educated on importance of using gown and gloves while in mothers room and how easily cdiff can be transmitted. She stated understanding and seemed that she would be compliant but instead put on a mask, no gown and no gloves. She has been educated to wash hands with soap and water.
[2023-02-25] MEDS ORDERED: ondansetron 4mg rapidly disintigrating tab PO PRN (15:05)
--- NOTE | 2023-02-25 16:28 | NUR ---
Student's charting reviewed by instructor.
--- NOTE | 2023-02-25 18:37 | NUR ---
Report given to Dulce Bernardo. Pt cleaned up in bed,had one more bm and some slight confusion upon waking up.
[2023-02-25] MEDS: atorvastatin 20mg tablet PO SCH (20:55)
[2023-02-26] VITALS (8 sets, daily range): BP systolic 110–149; BP diastolic 43–78; PULSE 69–113; RESP 12–18; TEMP 96.9–98; O2SAT 94–97
[2023-02-26] MEDS: potassium Cl 20mEq in NS 1,000 ML IV SCH ×3 (00:20→23:06)
[2023-02-26] MEDS: vancomycin 125mg/5ml ORAL solution 5ml UD oral syringe PO SCH ×4 (02:23→20:15)
--- NOTE | 2023-02-26 05:38 | NUR ---
agree with assessment and charting of RAY Acuna
--- NOTE | 2023-02-26 06:31 | NUR ---
Problems reprioritized. Patient report given, questions answered & plan of care reviewed with
[2023-02-26 06:44] LABS: ALANINE AMINOTRANSFERASE 11 U/L (12-78); ALBUMIN 2.6 G/DL (3.4-5.0); ALKALINE PHOSPHATASE 55 IU/L (46-116); ANION GAP 5 (8-16); ASPARTATE AMINO TRANSFERASE 18 U/L (10-37); BILIRUBIN,TOTAL 0.5 MG/DL (0.1-1.0); BLOOD UREA NITROGEN 3 MG/DL (7-18); BUN/CREATININE RATIO 5.7 (10.0-20.0); CALCIUM 8.3 MG/DL (8.5-10.1); CHLORIDE 106 MMOL/L (99-107); CREATININE 0.53 MG/DL (0.40-0.90); GLUCOSE 85 MG/DL (70-104); MAGNESIUM 1.5 MG/DL (1.5-2.4); POTASSIUM 3.6 MMOL/L (3.5-5.1); SODIUM 138 MMOL/L (135-145); TOTAL CARBON DIOXIDE 26.6 MMOL/L (24-32); TOTAL PROTEIN 5.2 G/DL (6.4-8.2); eCRCL 53 ML/MIN; eGFR > 90 ML/MIN
[2023-02-26 06:50] LABS: BASOPHILS # (AUTO) 0.1 X10'3 (0-0.2); BASOPHILS % (AUTO) 0.7 % (0-1); EOSINOPHILS # (AUTO) 0.2 X10'3 (0-0.9); EOSINOPHILS % (AUTO) 1.5 % (0-6); HEMOGLOBIN 12.6 g/dl (12.0-16.0); LYMPHOCYTES # (AUTO) 5.9 X10'3 (1.1-4.8); LYMPHOCYTES % (AUTO) 36.7 % (21-51); MEAN CORPUSCULAR HEMOGLOBIN 29.2 PG (27.0-31.0); MEAN CORPUSCULAR HGB CONC 33.1 g/dL (33.0-36.5); MEAN CORPUSCULAR VOLUME 88.2 FL (78-98); MEAN PLATELET VOLUME 9.2 FL (7.4-10.4); MONOCYTES # (AUTO) 0.9 X10'3 (0-0.9); MONOCYTES % (AUTO) 5.8 % (2-12); NEUTROPHILS % (AUTO) 55.3 % (42-75); PLATELET COUNT 205 X10'3 (140-440); RED BLOOD COUNT 4.31 X10'6 (4.20-5.60); RED CELL DISTRIBUTION WIDTH 14.9 % (11.5-14.5); WHITE BLOOD COUNT 16.2 X10'3 (4.5-11.0)
--- NOTE | 2023-02-26 06:55 | NUR ---
Patient in room [facility]TH[facility] 4017. I have received report from santiago INIGUEZ and had the opportunity to ask questions and assume patient care.
[2023-02-26] MEDS: citalopram 20mg tablet PO SCH (07:49)
[2023-02-26] MEDS: CefTRIAXone/D5W-Rocephin 1gm 50 ML IV SCH (07:49)
[2023-02-26] MEDS: oxybutynin 5mg tablet PO SCH ×2 (07:50→20:15)
[2023-02-26] MEDS: memantine hcl 7mg SR capsule (24-hr) PO SCH (07:50)
[2023-02-26] MEDS: amLODIPine 5mg tablet PO SCH (07:50)
[2023-02-26] MEDS: K and/or MAG REPLACEMENT MC SCH ×2 (08:00→20:00)
[2023-02-26] MEDS: apixaban 2.5mg tablet PO SCH ×2 (08:43→20:15)
[2023-02-26] MEDS: flecainide 50mg tablet PO SCH ×2 (08:44→20:15)
[2023-02-26 14:16] LABS: BILIRUBIN,URINE NEGATIVE (Neg); CLARITY,URINE SLIGHTLY CLOUDY (Clear); COLOR,URINE YELLOW (Yellow); GLUCOSE, URINE NEGATIVE (Neg); KETONES,URINE TRACE mg/dl (Neg); LEUKOCYTE ESTERASE ,URINE NEGATIVE (Neg); NITRITES, URINE NEGATIVE (Neg); OCCULT BLOOD,URINE TRACE-INTACT (Neg); PROTEIN,URINE NEGATIVE (Neg); UROBILINOGEN,URINE 0.2 E.U/dL (0.2-1.0)
[2023-02-26 14:22] LABS: UA COLLECTION TYPE STRAIGHT CATH
[2023-02-26 14:26] LABS: WBC,URINE 0-4 /HPF (0-4)
[2023-02-26 14:27] LABS: BACTERIA,URINE NONE SEEN /HPF (Neg); SQUAMOUS EPITHELIAL CELL,UR NONE SEEN /LPF (FEW)
--- NOTE | 2023-02-26 18:19 | NUR ---
INCONTINENT OF STOOL X1.Slept most of shift. Seen by DR Landaverde, no new orders. Report given to Charlotte INIGUEZ
[2023-02-26] MEDS: atorvastatin 20mg tablet PO SCH (20:15)
[2023-02-27] MEDS: vancomycin 125mg/5ml ORAL solution 5ml UD oral syringe PO SCH ×4 (03:27→20:51)
--- NOTE | 2023-02-27 06:10 | NUR ---
Problems reprioritized. Patient report given, questions answered & plan of care reviewed with HIRA Burns.
[2023-02-27 06:27] LABS: BASOPHILS # (AUTO) 0.2 X10'3 (0-0.2); BASOPHILS % (AUTO) 1.1 % (0-1); EOSINOPHILS # (AUTO) 0.3 X10'3 (0-0.9); EOSINOPHILS % (AUTO) 1.6 % (0-6); HEMATOCRIT 36.4 % (35.0-45.0); HEMOGLOBIN 12.1 g/dl (12.0-16.0); LYMPHOCYTES # (AUTO) 8.2 X10'3 (1.1-4.8); LYMPHOCYTES % (AUTO) 46.6 % (21-51); MEAN CORPUSCULAR HEMOGLOBIN 29.5 PG (27.0-31.0); MEAN CORPUSCULAR HGB CONC 33.3 g/dL (33.0-36.5); MEAN CORPUSCULAR VOLUME 88.7 FL (78-98); MEAN PLATELET VOLUME 8.3 FL (7.4-10.4); MONOCYTES % (AUTO) 5.7 % (2-12); NEUTROPHILS # (AUTO) 7.9 X10'3 (1.8-7.7); PLATELET COUNT 225 X10'3 (140-440); RED BLOOD COUNT 4.11 X10'6 (4.20-5.60); RED CELL DISTRIBUTION WIDTH 15.1 % (11.5-14.5); WHITE BLOOD COUNT 17.6 X10'3 (4.5-11.0)
[2023-02-27 06:55] LABS: ALANINE AMINOTRANSFERASE 9 U/L (12-78); ALBUMIN 2.6 G/DL (3.4-5.0); ALBUMIN/GLOBULIN RATIO 1.1 (1.1-1.5); ALKALINE PHOSPHATASE 50 IU/L (46-116); ANION GAP 5 (8-16); ASPARTATE AMINO TRANSFERASE 18 U/L (10-37); BILIRUBIN,TOTAL 0.3 MG/DL (0.1-1.0); BLOOD UREA NITROGEN 3 MG/DL (7-18); BUN/CREATININE RATIO 5.3 (10.0-20.0); CALCIUM 8.5 MG/DL (8.5-10.1); CHLORIDE 108 MMOL/L (99-107); CREATININE 0.57 MG/DL (0.40-0.90); GLUCOSE 96 MG/DL (70-104); POTASSIUM 4.1 MMOL/L (3.5-5.1); SODIUM 140 MMOL/L (135-145); TOTAL CARBON DIOXIDE 27.3 MMOL/L (24-32); eCRCL 49 ML/MIN; eGFR > 90 ML/MIN
[2023-02-27 07:23] VITALS: BP 138/72; PULSE 76; RESP 16; TEMP 97.3; O2SAT 94
[2023-02-27 07:41] LABS: ACANTHOCYTES 1+; PLATELET ESTIMATE NORMAL
[2023-02-27 08:00] VITALS: RESP 17; O2SAT 98
[2023-02-27] MEDS: K and/or MAG REPLACEMENT MC SCH ×2 (08:00→20:00)
[2023-02-27] MEDS: amLODIPine 5mg tablet PO SCH (08:58)
[2023-02-27] MEDS: apixaban 2.5mg tablet PO SCH ×2 (08:58→20:50)
[2023-02-27] MEDS: flecainide 50mg tablet PO SCH ×2 (08:58→20:51)
[2023-02-27] MEDS: memantine hcl 7mg SR capsule (24-hr) PO SCH (08:58)
[2023-02-27] MEDS: citalopram 20mg tablet PO SCH (08:58)
[2023-02-27] MEDS: oxybutynin 5mg tablet PO SCH ×2 (08:59→20:51)
[2023-02-27] MEDS: potassium Cl 20mEq in NS 1,000 ML IV SCH ×2 (10:45→20:45)
[2023-02-27 18:00] VITALS: BP 102/58; PULSE 81; RESP 16; TEMP 98.2; O2SAT 96
--- NOTE | 2023-02-27 18:00 | NUR ---
I have reviewed and agree with interventions, assessments, and documentation by Katy Garcia LVN.
--- NOTE | 2023-02-27 18:00 | NUR ---
Patient in room [facility] 4017. I have received report from RAY Dickson and had the opportunity to ask questions and assume patient care. Patient sitting up in chair, just finished dinner and daughter at bedside. I will continue to monitor.
[2023-02-27 20:00] VITALS: RESP 16; O2SAT 96
[2023-02-27] MEDS: atorvastatin 20mg tablet PO SCH (20:51)
[2023-02-27 22:00] VITALS: BP 141/67; PULSE 82; RESP 16; TEMP 98.2; O2SAT 97
[2023-02-28] MEDS: vancomycin 125mg/5ml ORAL solution 5ml UD oral syringe PO SCH ×4 (02:14→21:48)
[2023-02-28 06:00] VITALS: BP 177/61; PULSE 63; RESP 15; TEMP 97.6; O2SAT 93
--- NOTE | 2023-02-28 06:46 | NUR ---
Problems reprioritized. Patient report given, questions answered & plan of care reviewed with HIRA Vega.
[2023-02-28 08:00] VITALS: RESP 20; O2SAT 96
[2023-02-28] MEDS: K and/or MAG REPLACEMENT MC SCH ×2 (08:00→20:00)
--- NOTE | 2023-02-28 09:47 | NUR ---
Patient in room [facility]TH[facility] 4017. I have received report from PHUC INIGUEZ and had the opportunity to ask questions and assume patient care.
[2023-02-28] MEDS: apixaban 2.5mg tablet PO SCH ×2 (10:00→21:48)
[2023-02-28] MEDS: oxybutynin 5mg tablet PO SCH (10:01)
[2023-02-28] MEDS: atorvastatin 20mg tablet PO SCH (10:01)
[2023-02-28] MEDS: citalopram 20mg tablet PO SCH (10:01)
[2023-02-28] MEDS: flecainide 50mg tablet PO SCH ×2 (10:01→21:48)
[2023-02-28] MEDS: potassium Cl 20mEq in NS 1,000 ML IV SCH ×2 (10:02→12:33)
[2023-02-28] MEDS: memantine hcl 7mg SR capsule (24-hr) PO SCH (10:03)
[2023-02-28 10:05] VITALS: BP 131/54; PULSE 68
[2023-02-28] MEDS: amLODIPine 5mg tablet PO SCH (10:05)
[2023-02-28 11:00] VITALS: BP 127/58; PULSE 65; RESP 20; TEMP 98.2; O2SAT 96
[2023-02-28 14:22] LABS: BASOPHILS # (AUTO) 0.1 X10'3 (0-0.2); BASOPHILS % (AUTO) 0.6 % (0-1); EOSINOPHILS # (AUTO) 0.2 X10'3 (0-0.9); HEMATOCRIT 40.6 % (35.0-45.0); HEMOGLOBIN 13.2 g/dl (12.0-16.0); LYMPHOCYTES % (AUTO) 27.2 % (21-51); MEAN CORPUSCULAR HEMOGLOBIN 29.1 PG (27.0-31.0); MEAN CORPUSCULAR HGB CONC 32.6 g/dL (33.0-36.5); MEAN PLATELET VOLUME 9.1 FL (7.4-10.4); MONOCYTES # (AUTO) 1.3 X10'3 (0-0.9); MONOCYTES % (AUTO) 5.8 % (2-12); NEUTROPHILS # (AUTO) 14.4 X10'3 (1.8-7.7); NEUTROPHILS % (AUTO) 65.4 % (42-75); PLATELET COUNT 298 X10'3 (140-440); RED BLOOD COUNT 4.56 X10'6 (4.20-5.60); RED CELL DISTRIBUTION WIDTH 15.2 % (11.5-14.5); WHITE BLOOD COUNT 22.1 X10'3 (4.5-11.0)
[2023-02-28 14:35] LABS: ALANINE AMINOTRANSFERASE 13 U/L (12-78); ALBUMIN/GLOBULIN RATIO 1.1 (1.1-1.5); ALKALINE PHOSPHATASE 64 IU/L (46-116); ANION GAP 4 (8-16); ASPARTATE AMINO TRANSFERASE 19 U/L (10-37); BILIRUBIN,TOTAL 0.4 MG/DL (0.1-1.0); BLOOD UREA NITROGEN 4 MG/DL (7-18); BUN/CREATININE RATIO 6.5 (10.0-20.0); CALCIUM 9.1 MG/DL (8.5-10.1); CHLORIDE 104 MMOL/L (99-107); CREATININE 0.62 MG/DL (0.40-0.90); GLUCOSE 116 MG/DL (70-104); POTASSIUM 3.9 MMOL/L (3.5-5.1); SODIUM 139 MMOL/L (135-145); TOTAL CARBON DIOXIDE 31.2 MMOL/L (24-32); TOTAL PROTEIN 5.8 G/DL (6.4-8.2); eCRCL 45 ML/MIN; eGFR > 90 ML/MIN
--- NOTE | 2023-02-28 17:21 | NUR ---
attempted to walk pt stated she has visitors and will walk later.
[2023-02-28 18:00] VITALS: BP 131/59; PULSE 83; RESP 16; TEMP 100; O2SAT 93
--- NOTE | 2023-02-28 18:26 | NUR ---
Problems reprioritized. Patient report given, questions answered & plan of care reviewed with lowell garibay.
--- NOTE | 2023-02-28 18:35 | NUR ---
Received report from Era INIGUEZ and assumed care of pt
[2023-02-28 22:00] VITALS: BP 122/57; PULSE 70; RESP 14; TEMP 97.8; O2SAT 95
[2023-03-01] MEDS: vancomycin 125mg/5ml ORAL solution 5ml UD oral syringe PO SCH ×4 (02:33→20:56)
[2023-03-01 08:00] VITALS: RESP 18; O2SAT 97
[2023-03-01] MEDS: K and/or MAG REPLACEMENT MC SCH ×2 (08:00→20:00)
[2023-03-01] MEDS: memantine hcl 7mg SR capsule (24-hr) PO SCH (08:02)
[2023-03-01] MEDS: apixaban 2.5mg tablet PO SCH ×2 (08:02→20:56)
[2023-03-01] MEDS: flecainide 50mg tablet PO SCH ×2 (08:03→20:55)
[2023-03-01] MEDS: citalopram 20mg tablet PO SCH (08:03)
[2023-03-01] MEDS: amLODIPine 5mg tablet PO SCH (08:15)
--- NOTE | 2023-03-01 09:15 | NUR ---
RECEIVED A CALL FROM ELISABETH IN THE LAB. INFORMED NURSE THAT PATIENT HAS POSITIVE BLOOD CULTURES FROM THE SPECIMAN DRAWN ON 02/28/23 FROM RIGHT ARM. CULTURE IS GROWING GRAM POSITIVE COCCI IN PAIRS AND SHORT CHAINS. PRIMARY NURSE CAN NOTIFIED. CAN WILL INFORM DR. LYONS.
--- NOTE | 2023-03-01 09:20 | NUR ---
Notified MD of culture results. no new orders at this time.
[2023-03-01] MEDS ORDERED: vancomycin/NS 1 GM ADD-VANTAGE 250 ML IV ONE (10:00)
[2023-03-01] MEDS ORDERED: diphenhydrAMINE 50 mg/ml inj IV ONE (12:25)
[2023-03-01 12:47] LABS: BASOPHILS # (AUTO) 0.2 X10'3 (0-0.2); BASOPHILS % (AUTO) 0.7 % (0-1); EOSINOPHILS # (AUTO) 0.3 X10'3 (0-0.9); EOSINOPHILS % (AUTO) 1.1 % (0-6); HEMATOCRIT 39.4 % (35.0-45.0); HEMOGLOBIN 12.5 g/dl (12.0-16.0); LYMPHOCYTES # (AUTO) 10.1 X10'3 (1.1-4.8); LYMPHOCYTES % (AUTO) 35.1 % (21-51); MEAN CORPUSCULAR HEMOGLOBIN 28.6 PG (27.0-31.0); MEAN CORPUSCULAR HGB CONC 31.8 g/dL (33.0-36.5); MEAN CORPUSCULAR VOLUME 90.1 FL (78-98); MEAN PLATELET VOLUME 9.3 FL (7.4-10.4); MONOCYTES # (AUTO) 1.8 X10'3 (0-0.9); MONOCYTES % (AUTO) 6.2 % (2-12); NEUTROPHILS # (AUTO) 16.5 X10'3 (1.8-7.7); NEUTROPHILS % (AUTO) 56.9 % (42-75); PLATELET COUNT 294 X10'3 (140-440); RED BLOOD COUNT 4.37 X10'6 (4.20-5.60); RED CELL DISTRIBUTION WIDTH 15.1 % (11.5-14.5)
[2023-03-01 12:50] LABS: GLUCOSE 105 MG/DL (70-104); POTASSIUM 3.6 MMOL/L (3.5-5.1); SODIUM 139 MMOL/L (135-145); WHITE BLOOD COUNT 28.9 X10'3 (4.5-11.0)
[2023-03-01 12:51] LABS: ALANINE AMINOTRANSFERASE 16 U/L (12-78); ALBUMIN/GLOBULIN RATIO 1.1 (1.1-1.5); ALKALINE PHOSPHATASE 61 IU/L (46-116); ANION GAP 5 (8-16); ASPARTATE AMINO TRANSFERASE 18 U/L (10-37); BILIRUBIN,TOTAL 0.4 MG/DL (0.1-1.0); BLOOD UREA NITROGEN 9 MG/DL (7-18); BUN/CREATININE RATIO 12.9 (10.0-20.0); CALCIUM 8.8 MG/DL (8.5-10.1); CHLORIDE 103 MMOL/L (99-107); TOTAL CARBON DIOXIDE 31.3 MMOL/L (24-32); TOTAL PROTEIN 5.8 G/DL (6.4-8.2); eCRCL 40 ML/MIN; eGFR 79 ML/MIN
--- NOTE | 2023-03-01 13:00 | NUR ---
aware of critical WBC. No new orders.
[2023-03-01 13:25] LABS: TOTAL CELLS COUNTED 100
[2023-03-01 13:26] LABS: BURR CELLS 1+; ELLIPTOCYTES FEW; PLATELET ESTIMATE NORMAL
[2023-03-01 13:28] LABS: ACANTHOCYTES FEW
--- NOTE | 2023-03-01 15:25 | NUR ---
PLATE SHEAR OPERATOR documentation: I have reviewed and agree with all interventions, assessments performed and documented by Yessi Savage LVN.
[2023-03-01] MEDS: potassium Cl 20mEq in NS 1,000 ML IV SCH (15:33)
--- NOTE | 2023-03-01 17:02 | NUR ---
AGER ID: [id number] MESSAGE: [id number] [facility] critical lab- culture from yesterday's draw, right arm came back gram positive for cocci and clusters. responds without new orders at this time.
[2023-03-01 17:21] VITALS: RESP 16; O2SAT 92
--- NOTE | 2023-03-01 17:46 | NUR ---
Patient has intermittent incontinence and requires 1 to 1 assistance to the commode or the bathroom. Addendum: 03/01/23 at 1749 by Judy RENNER Amended: Links added.
[2023-03-01 18:00] VITALS: BP 119/58; PULSE 70; RESP 14; TEMP 98.6; O2SAT 92
[2023-03-01 20:00] VITALS: RESP 16; O2SAT 94
[2023-03-01] MEDS: atorvastatin 20mg tablet PO SCH (20:55)
[2023-03-01] MEDS: diatr meglu/diatrizoate 30ml oral sol.-(3 dose) bottle PO SCH (20:56)
--- NOTE | 2023-03-01 21:10 | NUR ---
PER REPORT PT HAD A REACTION TO IV VANCO AND WAS GIVEN BENADRYL THIS AFTER NOON. MED WAS UNFORTUNATELY CONTINUED ON THE EMAR. PT IS NOT WANTING TO GO THROUGH RECEIVING IV VANCO AND THEN GETTING BENADRYL. PHARM AWARE OF INCIDENT AND MADE AWARE OF DR. LYONS PROGRESS NOTE REGARDING THE INCIDENT AND TO RECEIVE PO VANCO.
[2023-03-01 22:00] VITALS: BP 121/56; PULSE 82; RESP 16; TEMP 98.4; O2SAT 96
[2023-03-01] MEDS ORDERED: VANCOMYCIN 750MG IV in NS 250 ML IV SCH (22:00)
[2023-03-02] MEDS: potassium Cl 20mEq in NS 1,000 ML IV SCH (01:09)
[2023-03-02] MEDS: vancomycin 125mg/5ml ORAL solution 5ml UD oral syringe PO SCH ×4 (02:50→21:44)
--- NOTE | 2023-03-02 05:23 | NUR ---
RAY documentation: I have reviewed and agree with all interventions, assessments performed and documented by ALEJO BELL. Addendum: 03/02/23 at 0524 by Montserrat De La Vega RN Amended: Links added.
[2023-03-02 06:00] VITALS: BP 151/70; PULSE 71; RESP 13; TEMP 98.1; O2SAT 96
--- NOTE | 2023-03-02 06:40 | NUR ---
Patient in room [facility]TH[facility] 4017. I have received report from HIRA Mariano and had the opportunity to ask questions and assume patient care.
[2023-03-02] MEDS: K and/or MAG REPLACEMENT MC SCH ×2 (08:00→20:00)
[2023-03-02 09:30] VITALS: RESP 18; O2SAT 95
[2023-03-02] MEDS: apixaban 2.5mg tablet PO SCH ×2 (09:39→21:45)
[2023-03-02] MEDS: flecainide 50mg tablet PO SCH ×2 (09:39→21:45)
[2023-03-02] MEDS: citalopram 20mg tablet PO SCH (09:39)
[2023-03-02] MEDS: diatr meglu/diatrizoate 30ml oral sol.-(3 dose) bottle PO SCH ×2 (09:39→11:27)
[2023-03-02] MEDS: amLODIPine 5mg tablet PO SCH (09:39)
[2023-03-02 10:00] VITALS: BP 105/53; PULSE 82; RESP 18; TEMP 98.3; O2SAT 95
[2023-03-02 10:11] LABS: BASOPHILS # (AUTO) 0.1 X10'3 (0-0.2); BASOPHILS % (AUTO) 0.4 % (0-1); EOSINOPHILS # (AUTO) 0.3 X10'3 (0-0.9); HEMATOCRIT 34.7 % (35.0-45.0); HEMOGLOBIN 11.5 g/dl (12.0-16.0); LYMPHOCYTES # (AUTO) 7.9 X10'3 (1.1-4.8); LYMPHOCYTES % (AUTO) 32.2 % (21-51); MEAN CORPUSCULAR HEMOGLOBIN 29.4 PG (27.0-31.0); MEAN CORPUSCULAR VOLUME 89.1 FL (78-98); MEAN PLATELET VOLUME 8.9 FL (7.4-10.4); MONOCYTES # (AUTO) 1.2 X10'3 (0-0.9); MONOCYTES % (AUTO) 4.9 % (2-12); NEUTROPHILS % (AUTO) 61.5 % (42-75); PLATELET COUNT 241 X10'3 (140-440); RED CELL DISTRIBUTION WIDTH 15.1 % (11.5-14.5); WHITE BLOOD COUNT 24.4 X10'3 (4.5-11.0)
[2023-03-02 10:28] LABS: ALANINE AMINOTRANSFERASE 16 U/L (12-78); ALBUMIN 2.6 G/DL (3.4-5.0); ALKALINE PHOSPHATASE 52 IU/L (46-116); ANION GAP 4 (8-16); ASPARTATE AMINO TRANSFERASE 17 U/L (10-37); BILIRUBIN,TOTAL 0.3 MG/DL (0.1-1.0); BLOOD UREA NITROGEN 10 MG/DL (7-18); BUN/CREATININE RATIO 16.1 (10.0-20.0); CALCIUM 8.6 MG/DL (8.5-10.1); CHLORIDE 105 MMOL/L (99-107); CREATININE 0.62 MG/DL (0.40-0.90); GLUCOSE 137 MG/DL (70-104); POTASSIUM 3.7 MMOL/L (3.5-5.1); SODIUM 138 MMOL/L (135-145); TOTAL CARBON DIOXIDE 29.3 MMOL/L (24-32); TOTAL PROTEIN 5.3 G/DL (6.4-8.2); eCRCL 45 ML/MIN; eGFR > 90 ML/MIN
[2023-03-02] MEDS: nystatin 15 GM powder TP SCH ×2 (10:46→21:45)
[2023-03-02] MEDS ORDERED: iohexol 300mg/ml 100ml inj. ONE (11:55)
--- NOTE | 2023-03-02 13:22 | NUR ---
PRESSURE ULCER EDUCATION: DEFINITION: A pressure ulcer is an area of skin that breaks down when you stay in one position too long. The constant pressure against the skin reduces the blood flow to that area and the affected tissue dies. CAUSES: "Being bedridden or in a wheelchair "Fragile skin "Having a chronic condition, such as diabetes or vascular disease "Inability to move certain parts of your body without assistance "Older age "Incontinence of urine or stool SYMPTOMS: "A reddened area that DOES NOT turn white when pressed on - this can be the beginning of a pressure ulcer "A blister, deep sore or a crater - these can be advanced pressure ulcers FIRST AID: "Relieve the pressure on this area "Keep the area clean and dry "Call your primary doctor if you see any of the above symptoms "DO NOT massage the area "DO NOT use a donut shaped or ring shaped pillow- these actually interfere with the blood flow and cause complications PREVENTION: "Check for pressure ulcers everyday "Change position at least every two hours to relieve pressure "Use items that help relieve pressure- pillows, sheepskin, foam padding, and powders. "Keep skin clean and dry "Eat healthy well balanced meals "Exercise daily IF YOU SEE ANY OF THESE SYMPTOMS WHILE IN THE HOSPITAL - TELL YOUR NURSE IMMEDIATELY. IF YOU SEE ANY OF THESE SYMPTOMS WHILE AT HOME OR HAVE ANY QUESTIONS OR CONCERNS ABOUT PRESSURE ULCERS - CALL YOUR PRIMARY DOCTOR IMMEDIATELY. Addendum: 03/02/23 at 1322 by Prem Dominique RN Amended: Links added.
[2023-03-02 18:00] VITALS: BP 138/67; PULSE 77; RESP 16; TEMP 98.3; O2SAT 93
--- NOTE | 2023-03-02 18:40 | NUR ---
Problems reprioritized. Patient report given, questions answered & plan of care reviewed with HIRA Mariano.
[2023-03-02] MEDS: normal saline 1000ml 1,000 ML IV SCH (19:45)
[2023-03-02 20:00] VITALS: RESP 16; O2SAT 93
[2023-03-02] MEDS ORDERED: atorvastatin 20mg tablet PO SCH (21:00)
[2023-03-02] MEDS ORDERED: VANCOMYCIN LEVEL IV ONE (21:30)
[2023-03-02 23:00] VITALS: BP 161/89; PULSE 79; RESP 16; TEMP 97.5; O2SAT 95
[2023-03-03] MEDS: vancomycin 125mg/5ml ORAL solution 5ml UD oral syringe PO SCH ×3 (02:46→14:18)
[2023-03-03 06:00] VITALS: BP 138/88; PULSE 84; RESP 16; TEMP 97.5; O2SAT 96
--- NOTE | 2023-03-03 06:30 | NUR ---
Patient in room [facility]TH[facility] 4017. I have received report from HIRA Mariano and had the opportunity to ask questions and assume patient care.
[2023-03-03] MEDS ORDERED: CITALOpram 10mg tablet PO SCH (08:00)
[2023-03-03 08:34] LABS: BASOPHILS # (AUTO) 0.1 X10'3 (0-0.2); BASOPHILS % (AUTO) 0.3 % (0-1); EOSINOPHILS # (AUTO) 0.2 X10'3 (0-0.9); EOSINOPHILS % (AUTO) 1.1 % (0-6); HEMATOCRIT 37.3 % (35.0-45.0); HEMOGLOBIN 12.2 g/dl (12.0-16.0); LYMPHOCYTES # (AUTO) 8.6 X10'3 (1.1-4.8); LYMPHOCYTES % (AUTO) 40.7 % (21-51); MEAN CORPUSCULAR HEMOGLOBIN 29.2 PG (27.0-31.0); MEAN CORPUSCULAR HGB CONC 32.6 g/dL (33.0-36.5); MEAN CORPUSCULAR VOLUME 89.6 FL (78-98); MEAN PLATELET VOLUME 8.6 FL (7.4-10.4); MONOCYTES % (AUTO) 4.6 % (2-12); NEUTROPHILS # (AUTO) 11.3 X10'3 (1.8-7.7); NEUTROPHILS % (AUTO) 53.3 % (42-75); PLATELET COUNT 232 X10'3 (140-440); RED BLOOD COUNT 4.16 X10'6 (4.20-5.60); RED CELL DISTRIBUTION WIDTH 15.1 % (11.5-14.5); WHITE BLOOD COUNT 21.1 X10'3 (4.5-11.0)
[2023-03-03 09:08] LABS: ALANINE AMINOTRANSFERASE 16 U/L (12-78); ALBUMIN 2.8 G/DL (3.4-5.0); ALKALINE PHOSPHATASE 56 IU/L (46-116); ANION GAP 3 (8-16); ASPARTATE AMINO TRANSFERASE 11 U/L (10-37); BILIRUBIN,TOTAL 0.4 MG/DL (0.1-1.0); BLOOD UREA NITROGEN 8 MG/DL (7-18); BUN/CREATININE RATIO 14.8 (10.0-20.0); CALCIUM 8.8 MG/DL (8.5-10.1); CHLORIDE 106 MMOL/L (99-107); CREATININE 0.54 MG/DL (0.40-0.90); GLUCOSE 123 MG/DL (70-104); POTASSIUM 3.7 MMOL/L (3.5-5.1); SODIUM 140 MMOL/L (135-145); TOTAL CARBON DIOXIDE 30.7 MMOL/L (24-32); TOTAL PROTEIN 5.7 G/DL (6.4-8.2); eCRCL 52 ML/MIN; eGFR > 90 ML/MIN
[2023-03-03] MEDS: K and/or MAG REPLACEMENT MC SCH (09:22)
[2023-03-03 09:45] VITALS: RESP 16; O2SAT 99
[2023-03-03] MEDS: flecainide 50mg tablet PO SCH (09:56)
[2023-03-03] MEDS: apixaban 2.5mg tablet PO SCH (09:56)
[2023-03-03] MEDS: nystatin 15 GM powder TP SCH (09:57)
[2023-03-03 10:00] VITALS: BP 117/65; PULSE 80; RESP 16; TEMP 98; O2SAT 99
[2023-03-03] MEDS: normal saline 1000ml 1,000 ML IV SCH (10:33)
--- NOTE | 2023-03-03 14:30 | NUR ---
Pt transferred to [facility] via [facility]. IV DC'd, tip intact. All belongings sent w/pt.
== END 2023-03-03 14:30 | DRG 871 ==
LOC: ER 15:08 → ED HOLD 20:52 → ORTHO 4S 02-24 08:25
PROVIDERS: ADMIT Internal Medicine; ATTEND Internal Medicine
PROC: BW211ZZ Computerized Tomography (CT Scan) of Abdomen and Pelvis using Low Osmolar Contrast (ICD-10-PCS; principal; 2023-03-02)
DX: A41.9 Sepsis, unspecified organism (principal); G93.41 Metabolic encephalopathy; A04.72 Enterocolitis due to Clostridium difficile, not specified as recurrent; N39.0 Urinary tract infection, site not specified; E78.5 Hyperlipidemia, unspecified; I48.91 Unspecified atrial fibrillation; F32.A Depression, unspecified; E87.6 Hypokalemia; E86.0 Dehydration; I10 Essential (primary) hypertension; S00.93XA Contusion of unspecified part of head, initial encounter; W06.XXXA Fall from bed, initial encounter; Y93.89 Activity, other specified; Y92.89 Other specified places as the place of occurrence of the external cause; Y99.8 Other external cause status; Z85.3 Personal history of malignant neoplasm of breast; Z87.440 Personal history of urinary (tract) infections; Z88.2 Allergy status to sulfonamides; Z79.899 Other long term (current) drug therapy; Z86.73 Personal history of transient ischemic attack (TIA), and cerebral infarction without residual deficits
CPT/HCPCS: 36415; 70450; 71045; 74177; 80053; 81001; 83605; 83735; 84132; 84145; 84484; 85007; 85008; 85025; 85610; 85651; 85730; 87040; 87077; 87081; 87186; 87324; 87449; 93005; 97116; 97161; 97530; 97535; 99285; A4353; A4615; A6250; C1758; G0378; J0131; J0696; J1200; J2060; J3370; J3480; J3490; J7030; Q9963; Q9967

== ENCOUNTER 2023-04-03 11:19 | Inpatient (IN) | payer MEDICARE, BC ==
[~2023-04-03] VITALS: Ht 157.5 cm; Wt 67.0 kg
[~2023-04-03 11:19] MED LIST changes: +FLEC50TA28 PO; +MEMA7CAP2 PO
[2023-04-03] MEDS ORDERED: normal saline 1000ml 1,000 ML IV ONE (12:25)
--- NOTE | 2023-04-03 12:30 | NUR ---
KATARZYNA [SON] [phone] KEEP UP TO DATE.
[2023-04-03 13:00] LABS: C DIFF ANTIGEN POSITIVE (NEGATIVE); C DIFF SPECIMEN=DIARRHEA? ACCEPTABLE; C DIFFICILE TOXINS A&B POSITIVE (Neg)
[2023-04-03 13:22] LABS: APTT 33 SECONDS (22-32); INR 1.1 INR; PROTHROMBIN TIME 11.4 SECONDS (9.0-12.0)
[2023-04-03 13:25] LABS: ALANINE AMINOTRANSFERASE 11 U/L (12-78); ALBUMIN 3.1 G/DL (3.4-5.0); ALBUMIN/GLOBULIN RATIO 1.1 (1.1-1.5); ALKALINE PHOSPHATASE 58 IU/L (46-116); ANION GAP 10 (8-16); ASPARTATE AMINO TRANSFERASE 20 U/L (10-37); BILIRUBIN,TOTAL 1.2 MG/DL (0.1-1.0); BLOOD UREA NITROGEN 18 MG/DL (7-18); BUN/CREATININE RATIO 23.7 (10.0-20.0); CALCIUM 8.4 MG/DL (8.5-10.1); CHLORIDE 100 MMOL/L (99-107); CREATININE 0.76 MG/DL (0.40-0.90); GLUCOSE 127 MG/DL (70-104); LIPASE 10 U/L (16-77); SODIUM 135 MMOL/L (135-145); TOTAL CARBON DIOXIDE 24.7 MMOL/L (24-32); TOTAL PROTEIN 5.8 G/DL (6.4-8.2); eCRCL 40 ML/MIN; eGFR 72 ML/MIN
[2023-04-03] MEDS ORDERED: iohexol 300mg/ml 100ml inj. ONE (13:25)
[2023-04-03 13:41] LABS: BASOPHILS % (AUTO) 0.3 % (0-1); EOSINOPHILS % (AUTO) 0 % (0-6); HEMATOCRIT 40.4 % (35.0-45.0); HEMOGLOBIN 13.3 g/dl (12.0-16.0); LYMPHOCYTES % (AUTO) 10.4 % (21-51); MEAN CORPUSCULAR HEMOGLOBIN 29.5 PG (27.0-31.0); MEAN CORPUSCULAR HGB CONC 32.8 g/dL (33.0-36.5); MEAN CORPUSCULAR VOLUME 89.8 FL (78-98); MONOCYTES # (AUTO) 1.6 X10'3 (0-0.9); MONOCYTES % (AUTO) 7.9 % (2-12); NEUTROPHILS # (AUTO) 15.9 X10'3 (1.8-7.7); NEUTROPHILS % (AUTO) 81.4 % (42-75); PLATELET COUNT 138 X10'3 (140-440); RED CELL DISTRIBUTION WIDTH 16.2 % (11.5-14.5); WHITE BLOOD COUNT 19.6 X10'3 (4.5-11.0)
[2023-04-03] MEDS ORDERED: vancomycin 125mg/5ml ORAL solution 5ml UD oral syringe PO ONE (14:00)
[2023-04-03 14:38] LABS: POTASSIUM 2.8 MMOL/L (3.5-5.1)
[2023-04-03] MEDS ORDERED: potassium CL 10mEq/100ml bag 100 ML IV SCH (14:55)
[2023-04-03] MEDS ORDERED: magnesium 4gm in 100ml NS 100 ML IV PRN (15:45)
[2023-04-03] MEDS ORDERED: magnesium Cl slow-release 64mg tablet PO PRN (15:45)
[2023-04-03] MEDS ORDERED: acetaminophen 325mg tablet PO PRN (15:45)
[2023-04-03] MEDS ORDERED: potassium Cl 40MEQ/1/2NS 520ml 520 ML IV PRN (15:45)
[2023-04-03] MEDS ORDERED: mag hydrox/Alum hydrox/simeth 30ml oral suspension PO PRN (15:45)
[2023-04-03] MEDS ORDERED: HYDROcodone/acetaminophen 5mg/325mg tablet PO PRN (15:45)
[2023-04-03] MEDS ORDERED: potassium Cl 20 mEq SR tablet PO PRN (15:45)
[2023-04-03] MEDS ORDERED: ondansetron/PF 4mg/2ml inj IV PRN (15:45)
[2023-04-03] MEDS ORDERED: HYDROcodone/acetaminophen 10/325mg tab PO PRN (15:45)
[2023-04-03] MEDS ORDERED: normal saline 1000ml 1,000 ML IV SCH (15:55)
--- NOTE | 2023-04-03 15:56 | NUR ---
PT REPOSITIONED, CLEANED AND CHANGED. ZINC OXIDE PLACED ON BUTTOCKS.
[2023-04-03] MEDS: zinc oxide ointment 30gm tube TP SCH (15:57)
[2023-04-03] MEDS: normal saline 1000ml 1,000 ML IV SCH (16:57)
[2023-04-03] MEDS: potassium Cl 20 mEq SR tablet PO PRN (17:04)
[2023-04-03] MEDS: flecainide 50mg tablet PO SCH (20:00)
[2023-04-03] MEDS ORDERED: heparin, porcine 5000 units/ml vial SQ SCH (20:00)
[2023-04-03] MEDS: apixaban 2.5mg tablet PO SCH (20:00)
[2023-04-03] MEDS: oxybutynin 5mg tablet PO SCH (20:00)
[2023-04-03] MEDS: vancomycin 125mg/5ml ORAL solution 5ml UD oral syringe PO SCH (21:05)
[2023-04-03] MEDS: atorvastatin 20mg tablet PO SCH (21:07)
--- NOTE | 2023-04-03 21:11 | NUR ---
2049 REC'D PT IN POC IN NAD WITH NO CC, ONLY THE DIARRHEA. PT CLEANED WITH REPLACED BRIEF AND BEDDING. PLACED ON BSC FOR UA SPEC, UNABLE TO OBT CLEAN SPEC, MIXED WITH DIARRHEA. RETURNED TO BED, RECLEANED, LINEN CHANGED, ATTEMPTING URINE CATH FOR SPEC
[2023-04-03 22:00] LABS: BILIRUBIN,URINE NEGATIVE (Neg); CLARITY,URINE SLIGHTLY CLOUDY (Clear); GLUCOSE, URINE NEGATIVE (Neg); KETONES,URINE TRACE mg/dl (Neg); LEUKOCYTE ESTERASE ,URINE NEGATIVE (Neg); NITRITES, URINE POSITIVE (Neg); OCCULT BLOOD,URINE MODERATE (Neg); PROTEIN,URINE TRACE mg/dl (Neg); UROBILINOGEN,URINE 0.2 E.U/dL (0.2-1.0)
[2023-04-03 22:03] LABS: COLOR,URINE DARK YELLOW (Yellow); UA COLLECTION TYPE FOLEY CATH
[2023-04-03 22:07] LABS: WBC,URINE 20-30 /HPF (0-4)
[2023-04-03 22:08] LABS: BACTERIA,URINE 4+ /HPF (Neg); SQUAMOUS EPITHELIAL CELL,UR FEW /LPF (FEW); TRANSITIONAL EPI CELLS,URINE FEW /HPF; WBC CLUMPS,URINE FEW /HPF (NEGATIVE)
[2023-04-04] VITALS (9 sets, daily range): BP systolic 108–126; BP diastolic 40–59; PULSE 78–85; RESP 14–18; TEMP 98.3–98.8; O2SAT 94–96
[2023-04-04] MEDS: vancomycin 125mg/5ml ORAL solution 5ml UD oral syringe PO SCH ×4 (02:47→21:21)
[2023-04-04] MEDS: normal saline 1000ml 1,000 ML IV SCH ×3 (02:48→16:36)
--- NOTE | 2023-04-04 07:00 | NUR ---
ASSUMED PT CARE. PT AWAKES EASILY. BRIEF IS SOAKED WITH STOOL. CHANGED AND CLEANED PT WITH ASSISTANCE. PT DENIES PAIN BUT GUARDS HER LEFT LOWER QUADRANT WITH MOVEMENT.
[2023-04-04 08:19] LABS: BASOPHILS % (AUTO) 0.2 % (0-1); EOSINOPHILS # (AUTO) 0.3 X10'3 (0-0.9); EOSINOPHILS % (AUTO) 1.7 % (0-6); HEMATOCRIT 35.3 % (35.0-45.0); HEMOGLOBIN 11.4 g/dl (12.0-16.0); LYMPHOCYTES # (AUTO) 5.6 X10'3 (1.1-4.8); LYMPHOCYTES % (AUTO) 30.1 % (21-51); MEAN CORPUSCULAR HEMOGLOBIN 29.2 PG (27.0-31.0); MEAN CORPUSCULAR HGB CONC 32.3 g/dL (33.0-36.5); MEAN CORPUSCULAR VOLUME 90.4 FL (78-98); MEAN PLATELET VOLUME 9.7 FL (7.4-10.4); MONOCYTES # (AUTO) 1.5 X10'3 (0-0.9); MONOCYTES % (AUTO) 8.2 % (2-12); NEUTROPHILS # (AUTO) 11.1 X10'3 (1.8-7.7); NEUTROPHILS % (AUTO) 59.8 % (42-75); PLATELET COUNT 124 X10'3 (140-440); RED BLOOD COUNT 3.91 X10'6 (4.20-5.60); RED CELL DISTRIBUTION WIDTH 15.9 % (11.5-14.5); WHITE BLOOD COUNT 18.5 X10'3 (4.5-11.0)
[2023-04-04] MEDS: oxybutynin 5mg tablet PO SCH ×2 (08:49→21:20)
[2023-04-04] MEDS: citalopram 20mg tablet PO SCH (08:49)
[2023-04-04] MEDS: apixaban 2.5mg tablet PO SCH ×2 (08:50→21:20)
[2023-04-04] MEDS: memantine 5mg tablet PO SCH (08:50)
[2023-04-04] MEDS: flecainide 50mg tablet PO SCH ×2 (08:51→21:20)
[2023-04-04 08:57] LABS: ALANINE AMINOTRANSFERASE 9 U/L (12-78); ALBUMIN 2.5 G/DL (3.4-5.0); ALKALINE PHOSPHATASE 55 IU/L (46-116); ANION GAP 7 (8-16); ASPARTATE AMINO TRANSFERASE 15 U/L (10-37); BILIRUBIN,TOTAL 0.5 MG/DL (0.1-1.0); BLOOD UREA NITROGEN 18 MG/DL (7-18); BUN/CREATININE RATIO 29.5 (10.0-20.0); CALCIUM 8.2 MG/DL (8.5-10.1); CHLORIDE 105 MMOL/L (99-107); CREATININE 0.61 MG/DL (0.40-0.90); GLUCOSE 108 MG/DL (70-104); MAGNESIUM 1.9 MG/DL (1.5-2.4); PHOSPHORUS 2.2 MG/DL (2.3-4.5); POTASSIUM 3.7 MMOL/L (3.5-5.1); SODIUM 136 MMOL/L (135-145); TOTAL CARBON DIOXIDE 24.2 MMOL/L (24-32); TOTAL PROTEIN 5.1 G/DL (6.4-8.2); eCRCL 50 ML/MIN; eGFR > 90 ML/MIN
[2023-04-04] MEDS: zinc oxide ointment 30gm tube TP SCH ×2 (08:57→20:00)
[2023-04-04] MEDS: amLODIPine 5mg tablet PO SCH (08:58)
--- NOTE | 2023-04-04 10:40 | NUR ---
RECTAL TUBE INSERTED WITH 45ML OF AIR TO BALLOON. PT TOLERATED WELL.
--- NOTE | 2023-04-04 11:15 | NUR ---
Assumed patient care. Patient alert and appropriate at the time of admission. Oriented to room, call light and fall precautions. IVF infusing per orders, f/c and rectal tube patent at this time.
[2023-04-04] MEDS: atorvastatin 20mg tablet PO SCH (21:20)
--- NOTE | 2023-04-04 23:04 | NUR ---
Student documentation: I have reviewed interventions, assessments performed and documented by Meli Feng [facility].
[2023-04-05] MEDS: normal saline 1000ml 1,000 ML IV SCH ×3 (01:59→23:27)
[2023-04-05] MEDS: vancomycin 125mg/5ml ORAL solution 5ml UD oral syringe PO SCH ×2 (02:09→07:55)
--- NOTE | 2023-04-05 05:40 | NUR ---
rectal tube displaced while patient was attempting to elope bed
[2023-04-05 06:00] VITALS: BP 134/67; PULSE 83; RESP 15; TEMP 96.6; O2SAT 93
--- NOTE | 2023-04-05 06:12 | NUR ---
Patient in room ORTHO 4008. I have received report from Rich BELL and had the opportunity to ask questions and assume patient care.
[2023-04-05 06:24] LABS: BASOPHILS % (AUTO) 0.1 % (0-1); EOSINOPHILS # (AUTO) 0.3 X10'3 (0-0.9); EOSINOPHILS % (AUTO) 2.4 % (0-6); HEMATOCRIT 32.5 % (35.0-45.0); HEMOGLOBIN 10.9 g/dl (12.0-16.0); LYMPHOCYTES # (AUTO) 4.6 X10'3 (1.1-4.8); LYMPHOCYTES % (AUTO) 35.7 % (21-51); MEAN CORPUSCULAR HEMOGLOBIN 30.2 PG (27.0-31.0); MEAN CORPUSCULAR HGB CONC 33.6 g/dL (33.0-36.5); MEAN CORPUSCULAR VOLUME 89.8 FL (78-98); MEAN PLATELET VOLUME 9.9 FL (7.4-10.4); MONOCYTES % (AUTO) 7.6 % (2-12); NEUTROPHILS % (AUTO) 54.2 % (42-75); PLATELET COUNT 122 X10'3 (140-440); RED BLOOD COUNT 3.62 X10'6 (4.20-5.60); WHITE BLOOD COUNT 12.9 X10'3 (4.5-11.0)
[2023-04-05 06:34] LABS: ALANINE AMINOTRANSFERASE 13 U/L (12-78); ALBUMIN 2.3 G/DL (3.4-5.0); ALKALINE PHOSPHATASE 47 IU/L (46-116); ANION GAP 4 (8-16); ASPARTATE AMINO TRANSFERASE 22 U/L (10-37); BILIRUBIN,TOTAL 0.4 MG/DL (0.1-1.0); BLOOD UREA NITROGEN 8 MG/DL (7-18); BUN/CREATININE RATIO 13.6 (10.0-20.0); CALCIUM 7.8 MG/DL (8.5-10.1); CHLORIDE 107 MMOL/L (99-107); CREATININE 0.59 MG/DL (0.40-0.90); GLUCOSE 91 MG/DL (70-104); MAGNESIUM 1.6 MG/DL (1.5-2.4); PHOSPHORUS 1.8 MG/DL (2.3-4.5); SODIUM 138 MMOL/L (135-145); TOTAL CARBON DIOXIDE 26.6 MMOL/L (24-32); TOTAL PROTEIN 4.7 G/DL (6.4-8.2); eCRCL 52 ML/MIN; eGFR > 90 ML/MIN
--- NOTE | 2023-04-05 06:41 | NUR ---
report to Megan INIGUEZ
[2023-04-05] MEDS: amLODIPine 5mg tablet PO SCH (07:56)
[2023-04-05] MEDS: memantine 5mg tablet PO SCH (07:56)
[2023-04-05] MEDS: flecainide 50mg tablet PO SCH ×2 (07:56→20:31)
[2023-04-05] MEDS: oxybutynin 5mg tablet PO SCH ×2 (07:56→20:33)
[2023-04-05] MEDS: citalopram 20mg tablet PO SCH (07:57)
[2023-04-05] MEDS: apixaban 2.5mg tablet PO SCH ×2 (07:57→20:32)
[2023-04-05] MEDS: potassium Cl 20 mEq SR tablet PO PRN ×3 (07:57→23:16)
[2023-04-05] MEDS: zinc oxide ointment 30gm tube TP SCH ×2 (08:00→20:34)
[2023-04-05 10:00] VITALS: BP 112/51; PULSE 71; RESP 15; TEMP 97.2; O2SAT 96
[2023-04-05] MEDS ORDERED: ondansetron 4mg rapidly disintigrating tab PO PRN (11:30)
--- NOTE | 2023-04-05 12:57 | NUR ---
PRESSURE ULCER EDUCATION: DEFINITION: A pressure ulcer is an area of skin that breaks down when you stay in one position too long. The constant pressure against the skin reduces the blood flow to that area and the affected tissue dies. CAUSES: "Being bedridden or in a wheelchair "Fragile skin "Having a chronic condition, such as diabetes or vascular disease "Inability to move certain parts of your body without assistance "Older age "Incontinence of urine or stool SYMPTOMS: "A reddened area that DOES NOT turn white when pressed on - this can be the beginning of a pressure ulcer "A blister, deep sore or a crater - these can be advanced pressure ulcers FIRST AID: "Relieve the pressure on this area "Keep the area clean and dry "Call your primary doctor if you see any of the above symptoms "DO NOT massage the area "DO NOT use a donut shaped or ring shaped pillow- these actually interfere with the blood flow and cause complications PREVENTION: "Check for pressure ulcers everyday "Change position at least every two hours to relieve pressure "Use items that help relieve pressure- pillows, sheepskin, foam padding, and powders. "Keep skin clean and dry "Eat healthy well balanced meals "Exercise daily IF YOU SEE ANY OF THESE SYMPTOMS WHILE IN THE HOSPITAL - TELL YOUR NURSE IMMEDIATELY. IF YOU SEE ANY OF THESE SYMPTOMS WHILE AT HOME OR HAVE ANY QUESTIONS OR CONCERNS ABOUT PRESSURE ULCERS - CALL YOUR PRIMARY DOCTOR IMMEDIATELY. Addendum: 04/05/23 at 1258 by Erum Moura LVN Amended: Links added.
[2023-04-05 13:19] VITALS: RESP 12; O2SAT 100
--- NOTE | 2023-04-05 13:24 | NUR ---
bowel movement at 1245 soft, fluffy, light brown and about the size of a quarter Addendum: 04/05/23 at 1329 by Ron RENNER Amended: Links added.
[2023-04-05 18:00] VITALS: BP 112/59; PULSE 78; RESP 20; TEMP 98.6; O2SAT 96
--- NOTE | 2023-04-05 18:56 | NUR ---
patient is firming up wih her stool. BM x2. Seen by Dr Landaverde. Son present most of shift in room. K 3.0 replaced x2. report given to Rich BELL
[2023-04-05] MEDS: atorvastatin 20mg tablet PO SCH (20:32)
[2023-04-05 22:00] VITALS: BP 153/63; PULSE 77; RESP 18; TEMP 98.6; O2SAT 96
[2023-04-06 06:00] VITALS: BP 119/45; PULSE 64; RESP 13; TEMP 97.6; O2SAT 95
[2023-04-06 06:33] LABS: BASOPHILS % (AUTO) 0.2 % (0-1); EOSINOPHILS # (AUTO) 0.5 X10'3 (0-0.9); EOSINOPHILS % (AUTO) 3.1 % (0-6); HEMATOCRIT 32.2 % (35.0-45.0); HEMOGLOBIN 10.5 g/dl (12.0-16.0); LYMPHOCYTES # (AUTO) 7.5 X10'3 (1.1-4.8); LYMPHOCYTES % (AUTO) 47.4 % (21-51); MEAN CORPUSCULAR HEMOGLOBIN 29.1 PG (27.0-31.0); MEAN CORPUSCULAR HGB CONC 32.5 g/dL (33.0-36.5); MEAN CORPUSCULAR VOLUME 89.7 FL (78-98); MEAN PLATELET VOLUME 9.6 FL (7.4-10.4); MONOCYTES # (AUTO) 1.3 X10'3 (0-0.9); NEUTROPHILS # (AUTO) 6.6 X10'3 (1.8-7.7); NEUTROPHILS % (AUTO) 41.3 % (42-75); PLATELET COUNT 150 X10'3 (140-440); RED BLOOD COUNT 3.59 X10'6 (4.20-5.60); RED CELL DISTRIBUTION WIDTH 15.6 % (11.5-14.5); WHITE BLOOD COUNT 15.9 X10'3 (4.5-11.0)
--- NOTE | 2023-04-06 06:39 | NUR ---
Patient in room ORTHO 4008. I have received report from Rich and had the opportunity to ask questions and assume patient care.
--- NOTE | 2023-04-06 06:41 | NUR ---
I agree with RESTORER LACE AND TEXTILES physical assessment.
--- NOTE | 2023-04-06 06:43 | NUR ---
report to Lorraine INIGUEZ
[2023-04-06 06:45] LABS: ALANINE AMINOTRANSFERASE 11 U/L (12-78); ALBUMIN 2.4 G/DL (3.4-5.0); ALKALINE PHOSPHATASE 58 IU/L (46-116); ANION GAP 4 (8-16); ASPARTATE AMINO TRANSFERASE 27 U/L (10-37); BILIRUBIN,TOTAL 0.3 MG/DL (0.1-1.0); BLOOD UREA NITROGEN 5 MG/DL (7-18); BUN/CREATININE RATIO 9.6 (10.0-20.0); CALCIUM 8.1 MG/DL (8.5-10.1); CHLORIDE 110 MMOL/L (99-107); CREATININE 0.52 MG/DL (0.40-0.90); GLUCOSE 98 MG/DL (70-104); MAGNESIUM 1.6 MG/DL (1.5-2.4); PHOSPHORUS 1.8 MG/DL (2.3-4.5); SODIUM 141 MMOL/L (135-145); TOTAL CARBON DIOXIDE 26.6 MMOL/L (24-32); TOTAL PROTEIN 4.7 G/DL (6.4-8.2); eCRCL 59 ML/MIN; eGFR > 90 ML/MIN
[2023-04-06 07:35] LABS: TOTAL CELLS COUNTED 100
[2023-04-06 07:36] LABS: PLATELET ESTIMATE NORMAL
[2023-04-06] MEDS: zinc oxide ointment 30gm tube TP SCH ×2 (08:00→22:10)
[2023-04-06] MEDS: oxybutynin 5mg tablet PO SCH ×2 (08:09→22:01)
[2023-04-06] MEDS: apixaban 2.5mg tablet PO SCH ×2 (08:09→22:01)
[2023-04-06] MEDS: flecainide 50mg tablet PO SCH ×2 (08:09→22:00)
[2023-04-06] MEDS: memantine 5mg tablet PO SCH (08:09)
[2023-04-06] MEDS: citalopram 20mg tablet PO SCH (08:09)
[2023-04-06] MEDS: amLODIPine 5mg tablet PO SCH (08:10)
[2023-04-06 10:00] VITALS: BP 121/56; PULSE 77; RESP 16; TEMP 98; O2SAT 97
[2023-04-06] MEDS: normal saline 1000ml 1,000 ML IV SCH (10:20)
--- NOTE | 2023-04-06 17:21 | NUR ---
I agree with assessment by Michelle Carrizales Student Nurse
[2023-04-06 18:00] VITALS: BP 124/51; PULSE 69; RESP 17; TEMP 98.7; O2SAT 96
--- NOTE | 2023-04-06 18:23 | NUR ---
Problems reprioritized. Patient report given, questions answered & plan of care reviewed with
--- NOTE | 2023-04-06 19:12 | NUR ---
Patient in room ORTHO 4008. I have received report from DAVID INIGUEZ and had the opportunity to ask questions and assume patient care.
[2023-04-06 20:00] VITALS: RESP 17; O2SAT 96
[2023-04-06 22:00] VITALS: BP 127/45; PULSE 72; RESP 16; TEMP 97.7; O2SAT 94
[2023-04-06] MEDS: atorvastatin 20mg tablet PO SCH (22:00)
[2023-04-07 06:00] VITALS: BP 140/56; PULSE 67; RESP 16; TEMP 97.9; O2SAT 97
[2023-04-07 06:19] LABS: EOSINOPHILS # (AUTO) 0.6 X10'3 (0-0.9); HEMATOCRIT 32.9 % (35.0-45.0); HEMOGLOBIN 10.7 g/dl (12.0-16.0); MEAN CORPUSCULAR HEMOGLOBIN 29.2 PG (27.0-31.0); MONOCYTES # (AUTO) 1.1 X10'3 (0-0.9); MONOCYTES % (AUTO) 5.3 % (2-12); NEUTROPHILS # (AUTO) 7.3 X10'3 (1.8-7.7); RED BLOOD COUNT 3.67 X10'6 (4.20-5.60); WHITE BLOOD COUNT 21.7 X10'3 (4.5-11.0)
[2023-04-07 06:21] LABS: BASOPHILS # (AUTO) 0.1 X10'3 (0-0.2); BASOPHILS % (AUTO) 0.3 % (0-1); EOSINOPHILS % (AUTO) 2.7 % (0-6); LYMPHOCYTES # (AUTO) 12.6 X10'3 (1.1-4.8); MEAN CORPUSCULAR HGB CONC 32.6 g/dL (33.0-36.5); MEAN CORPUSCULAR VOLUME 89.6 FL (78-98); MEAN PLATELET VOLUME 9.2 FL (7.4-10.4); NEUTROPHILS % (AUTO) 33.7 % (42-75); PLATELET COUNT 160 X10'3 (140-440); RED CELL DISTRIBUTION WIDTH 15.6 % (11.5-14.5)
[2023-04-07 06:24] LABS: ALANINE AMINOTRANSFERASE 12 U/L (12-78); ALBUMIN 2.4 G/DL (3.4-5.0); ALKALINE PHOSPHATASE 78 IU/L (46-116); ANION GAP 3 (8-16); ASPARTATE AMINO TRANSFERASE 14 U/L (10-37); BILIRUBIN,TOTAL 0.3 MG/DL (0.1-1.0); BLOOD UREA NITROGEN 9 MG/DL (7-18); BUN/CREATININE RATIO 16.4 (10.0-20.0); CALCIUM 8.1 MG/DL (8.5-10.1); CHLORIDE 108 MMOL/L (99-107); CREATININE 0.55 MG/DL (0.40-0.90); GLUCOSE 88 MG/DL (70-104); MAGNESIUM 1.6 MG/DL (1.5-2.4); PHOSPHORUS 2.9 MG/DL (2.3-4.5); POTASSIUM 3.9 MMOL/L (3.5-5.1); SODIUM 139 MMOL/L (135-145); TOTAL CARBON DIOXIDE 28.2 MMOL/L (24-32); TOTAL PROTEIN 4.7 G/DL (6.4-8.2); eCRCL 56 ML/MIN; eGFR > 90 ML/MIN
--- NOTE | 2023-04-07 06:40 | NUR ---
Problems reprioritized. Patient report given, questions answered & plan of care reviewed with YADIRA BELL.
[2023-04-07] MEDS: flecainide 50mg tablet PO SCH ×2 (07:58→20:25)
[2023-04-07] MEDS: apixaban 2.5mg tablet PO SCH ×2 (07:58→20:25)
[2023-04-07] MEDS: citalopram 20mg tablet PO SCH (07:59)
[2023-04-07] MEDS: oxybutynin 5mg tablet PO SCH ×2 (07:59→20:25)
[2023-04-07] MEDS: memantine 5mg tablet PO SCH (07:59)
[2023-04-07 08:00] VITALS: RESP 14; O2SAT 97
[2023-04-07] MEDS: amLODIPine 5mg tablet PO SCH (08:00)
[2023-04-07] MEDS: zinc oxide ointment 30gm tube TP SCH ×2 (08:01→20:57)
[2023-04-07] MEDS: normal saline 1000ml 1,000 ML IV SCH ×3 (08:03→19:45)
[2023-04-07 10:00] VITALS: BP 101/42; PULSE 74; RESP 16; TEMP 98.1; O2SAT 95
--- NOTE | 2023-04-07 13:38 | NUR ---
I have reviewed and agree with the interventions, assessments performed and documentation by Suhail Alberts LVN[].
[2023-04-07 18:00] VITALS: BP 112/48; PULSE 74; RESP 16; TEMP 99; O2SAT 94
--- NOTE | 2023-04-07 18:50 | NUR ---
Problems reprioritized. Patient report given, questions answered & plan of care reviewed with RAY Acuna.
[2023-04-07 20:00] VITALS: RESP 13; O2SAT 98
[2023-04-07] MEDS: atorvastatin 20mg tablet PO SCH (20:29)
--- NOTE | 2023-04-08 04:23 | NUR ---
I HAVE REVIEWED ASSMT FOR THIS PATIENT DONE BY ALEJO BELL AND AGREE.
[2023-04-08 06:00] VITALS: BP 141/50; PULSE 69; RESP 16; TEMP 98.4; O2SAT 93
[2023-04-08 06:17] LABS: HEMOGLOBIN 11.2 g/dl (12.0-16.0); MEAN PLATELET VOLUME 9.4 FL (7.4-10.4); WHITE BLOOD COUNT 22.1 X10'3 (4.5-11.0)
[2023-04-08 06:19] LABS: BASOPHILS # (AUTO) 0.2 X10'3 (0-0.2); BASOPHILS % (AUTO) 0.7 % (0-1); EOSINOPHILS # (AUTO) 0.6 X10'3 (0-0.9); EOSINOPHILS % (AUTO) 2.6 % (0-6); HEMATOCRIT 34.1 % (35.0-45.0); LYMPHOCYTES # (AUTO) 12.8 X10'3 (1.1-4.8); LYMPHOCYTES % (AUTO) 57.8 % (21-51); MEAN CORPUSCULAR HEMOGLOBIN 29.3 PG (27.0-31.0); MEAN CORPUSCULAR HGB CONC 32.8 g/dL (33.0-36.5); MEAN CORPUSCULAR VOLUME 89.3 FL (78-98); MONOCYTES # (AUTO) 1.3 X10'3 (0-0.9); NEUTROPHILS # (AUTO) 7.3 X10'3 (1.8-7.7); NEUTROPHILS % (AUTO) 32.9 % (42-75); PLATELET COUNT 180 X10'3 (140-440); RED BLOOD COUNT 3.82 X10'6 (4.20-5.60); RED CELL DISTRIBUTION WIDTH 15.7 % (11.5-14.5)
[2023-04-08 06:32] LABS: ALANINE AMINOTRANSFERASE 10 U/L (12-78); ALBUMIN 2.5 G/DL (3.4-5.0); ALBUMIN/GLOBULIN RATIO 1.1 (1.1-1.5); ALKALINE PHOSPHATASE 51 IU/L (46-116); ANION GAP 5 (8-16); ASPARTATE AMINO TRANSFERASE 15 U/L (10-37); BILIRUBIN,TOTAL 0.3 MG/DL (0.1-1.0); BLOOD UREA NITROGEN 10 MG/DL (7-18); BUN/CREATININE RATIO 16.4 (10.0-20.0); CALCIUM 8.2 MG/DL (8.5-10.1); CHLORIDE 107 MMOL/L (99-107); CREATININE 0.61 MG/DL (0.40-0.90); GLUCOSE 95 MG/DL (70-104); MAGNESIUM 1.7 MG/DL (1.5-2.4); PHOSPHORUS 3.4 MG/DL (2.3-4.5); POTASSIUM 3.8 MMOL/L (3.5-5.1); SODIUM 140 MMOL/L (135-145); TOTAL PROTEIN 4.8 G/DL (6.4-8.2); eCRCL 50 ML/MIN; eGFR > 90 ML/MIN
--- NOTE | 2023-04-08 06:48 | NUR ---
Problems reprioritized. Patient report given, questions answered & plan of care reviewed with cecilia.
--- NOTE | 2023-04-08 07:30 | NUR ---
Patient in room ORTHO 4008. I have received report from ALEJO and had the opportunity to ask questions and assume patient care.
[2023-04-08 08:37] LABS: TOTAL CELLS COUNTED 100
[2023-04-08 08:38] LABS: SMUDGE CELLS 2+
[2023-04-08 08:39] LABS: ACANTHOCYTES FEW; BURR CELLS 1+; ELLIPTOCYTES 1+; PLATELET ESTIMATE NORMAL
[2023-04-08 08:41] LABS: SCHISTOCYTES FEW
[2023-04-08] MEDS: citalopram 20mg tablet PO SCH (10:08)
[2023-04-08] MEDS: atorvastatin 20mg tablet PO SCH (10:09)
[2023-04-08] MEDS: memantine 5mg tablet PO SCH (10:09)
[2023-04-08] MEDS: oxybutynin 5mg tablet PO SCH ×2 (10:09→21:25)
[2023-04-08] MEDS: flecainide 50mg tablet PO SCH ×2 (10:09→21:24)
[2023-04-08] MEDS: apixaban 2.5mg tablet PO SCH ×2 (10:09→21:25)
[2023-04-08] MEDS: zinc oxide ointment 30gm tube TP SCH ×2 (10:10→20:00)
[2023-04-08] MEDS: amLODIPine 5mg tablet PO SCH (10:12)
[2023-04-08 11:00] VITALS: BP 113/47; PULSE 82; RESP 16; TEMP 97.3; O2SAT 96
--- NOTE | 2023-04-08 13:04 | NUR ---
night nurse dc pts [place] per mds progress note. pt is using the toilet appropriately
--- NOTE | 2023-04-08 14:54 | NUR ---
Initial: Pt DX recurrent C.diff colitis, hypokalemia, and UTI per EMR. Per WOC note pt's sacrococcygeal area appears reddened with partial thickness loss to soft tissue of the buttock as seen in MASD and a small area in sacrum consistent with DTI. Pt continues on a regular diet with average PO intake of 41% x 11 meals which met ~61% of estimated kcal needs and about 56% of estimated protein needs. Recommend Ensure BIDBD to help better meet estimated needs; notified. LBM on 04/08 per EMR. Recommendations: 1.continue regular diet 2.Ensure Enlive BIDBD;pending physician approval in EMR 3.weekly scaled wts Addendum: 04/08/23 at [address] Amended: Links added.
[2023-04-08 18:00] VITALS: BP 124/46; PULSE 65; RESP 15; TEMP 98.7; O2SAT 97
--- NOTE | 2023-04-08 18:54 | NUR ---
Patient in room ORTHO 4008. I have received report from MARKUS and had the opportunity to ask questions and assume patient care.
--- NOTE | 2023-04-08 19:54 | NUR ---
Problems reprioritized. Patient report given, questions answered & plan of care reviewed with odessa garibay.
[2023-04-08 22:00] VITALS: BP 144/59; PULSE 63; RESP 18; TEMP 98.1; O2SAT 93
--- NOTE | 2023-04-09 05:50 | NUR ---
Student documentation: I have reviewed and agree with assessment performed and documented by ALEJO Otero Addendum: 04/09/23 at 0550 by Allison Judge RN SEX THERAPIST ASSESSMENT
--- NOTE | 2023-04-09 06:23 | NUR ---
Problems reprioritized. Patient report given, questions answered & plan of care reviewed with Era.
[2023-04-09 07:00] VITALS: BP 146/68; PULSE 60; PULSE 63; RESP 15; TEMP 97.3; O2SAT 94
[2023-04-09] MEDS: citalopram 20mg tablet PO SCH (07:27)
[2023-04-09] MEDS: flecainide 50mg tablet PO SCH ×2 (07:28→20:22)
[2023-04-09] MEDS: apixaban 2.5mg tablet PO SCH ×2 (07:28→20:22)
[2023-04-09] MEDS: memantine 5mg tablet PO SCH (07:28)
[2023-04-09] MEDS: oxybutynin 5mg tablet PO SCH ×2 (07:28→20:22)
[2023-04-09] MEDS: amLODIPine 5mg tablet PO SCH (07:30)
[2023-04-09] MEDS: zinc oxide ointment 30gm tube TP SCH ×2 (07:31→20:23)
[2023-04-09 11:00] VITALS: BP 140/62; PULSE 82; RESP 14; TEMP 97; O2SAT 95
[2023-04-09 11:38] LABS: BASOPHILS # (AUTO) 0.1 X10'3 (0-0.2); EOSINOPHILS # (AUTO) 0.5 X10'3 (0-0.9); HEMOGLOBIN 11.4 g/dl (12.0-16.0); MEAN PLATELET VOLUME 8.8 FL (7.4-10.4); MONOCYTES # (AUTO) 1.2 X10'3 (0-0.9)
[2023-04-09 11:39] LABS: BASOPHILS % (AUTO) 0.6 % (0-1); EOSINOPHILS % (AUTO) 3.1 % (0-6); HEMATOCRIT 35.2 % (35.0-45.0); LYMPHOCYTES # (AUTO) 6.7 X10'3 (1.1-4.8); MEAN CORPUSCULAR HEMOGLOBIN 29.1 PG (27.0-31.0); MEAN CORPUSCULAR HGB CONC 32.5 g/dL (33.0-36.5); MEAN CORPUSCULAR VOLUME 89.6 FL (78-98); MONOCYTES % (AUTO) 7.9 % (2-12); NEUTROPHILS # (AUTO) 7.1 X10'3 (1.8-7.7); NEUTROPHILS % (AUTO) 45.4 % (42-75); PLATELET COUNT 197 X10'3 (140-440); RED BLOOD COUNT 3.93 X10'6 (4.20-5.60); RED CELL DISTRIBUTION WIDTH 15.7 % (11.5-14.5); WHITE BLOOD COUNT 15.7 X10'3 (4.5-11.0)
[2023-04-09 18:00] VITALS: BP 122/45; PULSE 62; RESP 14; TEMP 97.3; O2SAT 95
[2023-04-09] MEDS: atorvastatin 20mg tablet PO SCH (20:22)
[2023-04-09 22:00] VITALS: BP 113/40; PULSE 60; RESP 14; TEMP 98.5; O2SAT 95
--- NOTE | 2023-04-10 03:10 | NUR ---
Patient in room ORTHO 4008. I have received report from Era INIGUEZ and had the opportunity to ask questions and assume patient care.
--- NOTE | 2023-04-10 03:18 | NUR ---
Problems reprioritized. Patient report given, questions answered & plan of care reviewed with jerry garibay.
[2023-04-10 06:00] VITALS: BP 128/49; PULSE 68; RESP 14; TEMP 97.9; O2SAT 93
[2023-04-10 08:00] VITALS: RESP 14; O2SAT 93
[2023-04-10] MEDS: oxybutynin 5mg tablet PO SCH ×2 (09:39→20:53)
[2023-04-10] MEDS: apixaban 2.5mg tablet PO SCH ×2 (09:39→20:55)
[2023-04-10] MEDS: flecainide 50mg tablet PO SCH ×2 (09:39→20:53)
[2023-04-10] MEDS: citalopram 20mg tablet PO SCH (09:39)
[2023-04-10] MEDS: memantine 5mg tablet PO SCH (09:39)
[2023-04-10] MEDS: amLODIPine 5mg tablet PO SCH (09:40)
[2023-04-10 10:00] VITALS: BP 137/52; PULSE 68; RESP 16; TEMP 97.1; O2SAT 96
[2023-04-10] MEDS: zinc oxide ointment 30gm tube TP SCH ×2 (10:08→20:55)
--- NOTE | 2023-04-10 17:05 | NUR ---
I have reviewed and agree with interventions, assessments performed, and documentation by RAY Pool.
--- NOTE | 2023-04-10 17:34 | NUR ---
Patient daughter came to visit. She is wanting to know since medicare covers the antibiotic that patient is taking for C-diff, can she pick pack worker the antibiotic and take it to [facility]? Also, if that isn't an option then can she be tested for C-diff after the completion of the antibiotic? Daughter stated that her mom had C-diff last month and she was never tested. Patient is needing to have a negative C-diff test inorder to be able to go back home at [facility].
[2023-04-10 18:00] VITALS: BP 124/54; PULSE 67; RESP 16; TEMP 98.2; O2SAT 94
--- NOTE | 2023-04-10 18:30 | NUR ---
Patient in room ORTHO 4008. I have received report from RAY COLON and had the opportunity to ask questions and assume patient care.
--- NOTE | 2023-04-10 18:50 | NUR ---
Patient in room ORTHO 4008. I have received report from HIRA CHERY and had the opportunity to ask questions and assume patient care.
--- NOTE | 2023-04-10 19:10 | NUR ---
Problems reprioritized. Patient report given, questions answered & plan of care reviewed with Pretty INIGUEZ.
[2023-04-10] MEDS: atorvastatin 20mg tablet PO SCH (20:55)
[2023-04-10 22:00] VITALS: BP 121/60; PULSE 89; RESP 14; TEMP 98.2; O2SAT 96
[2023-04-11 06:00] VITALS: BP 142/52; PULSE 72; RESP 15; TEMP 98.1; O2SAT 95
--- NOTE | 2023-04-11 06:15 | NUR ---
Problems reprioritized. Patient report given, questions answered & plan of care reviewed with RAY NORTH.
[2023-04-11] MEDS: citalopram 20mg tablet PO SCH (07:37)
[2023-04-11] MEDS: apixaban 2.5mg tablet PO SCH ×2 (07:38→20:28)
[2023-04-11] MEDS: amLODIPine 5mg tablet PO SCH (07:38)
[2023-04-11] MEDS: oxybutynin 5mg tablet PO SCH ×2 (07:38→20:28)
[2023-04-11] MEDS: memantine 5mg tablet PO SCH (07:38)
[2023-04-11] MEDS: flecainide 50mg tablet PO SCH ×2 (07:38→20:28)
[2023-04-11] MEDS: zinc oxide ointment 30gm tube TP SCH ×2 (08:00→20:28)
[2023-04-11 10:00] VITALS: BP 112/49; PULSE 69; RESP 14; TEMP 97.1; O2SAT 95
[2023-04-11 18:00] VITALS: BP 109/45; PULSE 78; RESP 16; TEMP 98.1; O2SAT 97
--- NOTE | 2023-04-11 18:08 | NUR ---
I have reviewed and agree with interventions, assessments, and documentation by RAY Dickson.
--- NOTE | 2023-04-11 18:29 | NUR ---
Patient in room ORTHO 4008. I have received report from RAY NORTH and had the opportunity to ask questions and assume patient care.
[2023-04-11] MEDS: atorvastatin 20mg tablet PO SCH (20:28)
[2023-04-11 22:00] VITALS: BP 113/62; PULSE 76; RESP 16; TEMP 97.1; O2SAT 95
[2023-04-12 06:00] VITALS: BP 136/56; PULSE 70; RESP 16; TEMP 97.9; O2SAT 95
--- NOTE | 2023-04-12 06:40 | NUR ---
Problems reprioritized. Patient report given, questions answered & plan of care reviewed with RAY MAY.
--- NOTE | 2023-04-12 06:42 | NUR ---
Patient in room ORTHO 4008. I have received report from HIRA Baird and had the opportunity to ask questions and assume patient care.
[2023-04-12 07:15] LABS: ALBUMIN 2.9 G/DL (3.4-5.0); ANION GAP 4 (8-16); BLOOD UREA NITROGEN 19 MG/DL (7-18); BUN/CREATININE RATIO 28.4 (10.0-20.0); CALCIUM 8.6 MG/DL (8.5-10.1); CHLORIDE 105 MMOL/L (99-107); CREATININE 0.67 MG/DL (0.40-0.90); GLUCOSE 90 MG/DL (70-104); POTASSIUM 4.1 MMOL/L (3.5-5.1); SODIUM 138 MMOL/L (135-145); TOTAL CARBON DIOXIDE 29.2 MMOL/L (24-32); eCRCL 46 ML/MIN; eGFR 83 ML/MIN
[2023-04-12 07:18] LABS: HEMOGLOBIN 11.6 g/dl (12.0-16.0)
[2023-04-12 07:20] LABS: BASOPHILS % (AUTO) 0.2 % (0-1); EOSINOPHILS # (AUTO) 0.4 X10'3 (0-0.9); EOSINOPHILS % (AUTO) 1.8 % (0-6); LYMPHOCYTES % (AUTO) 49.9 % (21-51); MEAN CORPUSCULAR HEMOGLOBIN 29.6 PG (27.0-31.0); MEAN CORPUSCULAR HGB CONC 33.2 g/dL (33.0-36.5); MEAN CORPUSCULAR VOLUME 89.1 FL (78-98); MEAN PLATELET VOLUME 9.1 FL (7.4-10.4); MONOCYTES # (AUTO) 1.6 X10'3 (0-0.9); MONOCYTES % (AUTO) 6.8 % (2-12); NEUTROPHILS # (AUTO) 9.9 X10'3 (1.8-7.7); NEUTROPHILS % (AUTO) 41.3 % (42-75); PLATELET COUNT 221 X10'3 (140-440); RED BLOOD COUNT 3.93 X10'6 (4.20-5.60); RED CELL DISTRIBUTION WIDTH 15.9 % (11.5-14.5)
[2023-04-12] MEDS: apixaban 2.5mg tablet PO SCH ×2 (07:55→19:26)
[2023-04-12] MEDS: amLODIPine 5mg tablet PO SCH (07:55)
[2023-04-12] MEDS: memantine 5mg tablet PO SCH (07:55)
[2023-04-12] MEDS: citalopram 20mg tablet PO SCH (07:55)
[2023-04-12] MEDS: oxybutynin 5mg tablet PO SCH ×2 (07:55→19:26)
[2023-04-12] MEDS: flecainide 50mg tablet PO SCH ×2 (07:55→19:26)
[2023-04-12 08:00] VITALS: RESP 16; O2SAT 98
[2023-04-12] MEDS: zinc oxide ointment 30gm tube TP SCH ×2 (08:00→19:26)
[2023-04-12 10:00] VITALS: BP 104/48; PULSE 77; RESP 16; TEMP 98.3; O2SAT 95
[2023-04-12 10:14] LABS: PLATELET ESTIMATE NORMAL; TOTAL CELLS COUNTED 100
[2023-04-12 10:15] LABS: SMUDGE CELLS 2+
[2023-04-12 10:18] LABS: BURR CELLS 2+; ELLIPTOCYTES 1+
[2023-04-12 10:19] LABS: ACANTHOCYTES FEW; SCHISTOCYTES FEW
--- NOTE | 2023-04-12 11:26 | NUR ---
Reassessment: Pt continues on regular diet with improving PO intake, documented with average 59% PO intake of meals since 04/09 meeting 87% estimated energy needs and 96% estimated protein needs. ONS still pending physician approval in EMR. See additional nutrition interventions below that were d/w dietary for additional nutrition. LBM 04/11 per I&O. Will continue to follow and monitor need for further nutrition intervention. Recommendations: 1. Continue regular diet 2. Ensure Enlive BIDBD; pending physician approval in EMR 3. Yogurt WB, shake WS 4. Bowel care PRN 5. Weekly scaled wts Addendum: 04/12/23 at [address] Amended: Links added.
--- NOTE | 2023-04-12 13:11 | NUR ---
I have reviewed and agree with all interventions, assessments performed and documented by Hilario BELL.
[2023-04-12 18:00] VITALS: BP 112/72; PULSE 95; RESP 15; TEMP 98.2; O2SAT 98
--- NOTE | 2023-04-12 18:34 | NUR ---
Patient in room ORTHO 4008. I have received report from HIRA MAY and had the opportunity to ask questions and assume patient care.
[2023-04-12] MEDS: atorvastatin 20mg tablet PO SCH (21:16)
[2023-04-12] MEDS: diatr meglu/diatrizoate 30ml oral sol.-(3 dose) bottle PO SCH (21:17)
[2023-04-12 22:00] VITALS: BP 124/56; PULSE 72; RESP 16; TEMP 98.3; O2SAT 94
[2023-04-13 06:00] VITALS: BP 120/53; PULSE 69; RESP 16; TEMP 97.9; O2SAT 91
--- NOTE | 2023-04-13 06:15 | NUR ---
Problems reprioritized. Patient report given, questions answered & plan of care reviewed with RAY NORTH.
[2023-04-13] MEDS: apixaban 2.5mg tablet PO SCH ×2 (07:11→20:45)
[2023-04-13] MEDS: flecainide 50mg tablet PO SCH ×2 (07:11→20:00)
[2023-04-13] MEDS: diatr meglu/diatrizoate 30ml oral sol.-(3 dose) bottle PO SCH ×2 (07:11→21:00)
[2023-04-13] MEDS: amLODIPine 5mg tablet PO SCH (07:12)
[2023-04-13] MEDS: oxybutynin 5mg tablet PO SCH ×2 (07:12→20:45)
[2023-04-13] MEDS: citalopram 20mg tablet PO SCH (07:12)
[2023-04-13] MEDS: memantine 5mg tablet PO SCH (07:12)
[2023-04-13] MEDS: zinc oxide ointment 30gm tube TP SCH ×2 (07:19→20:47)
[2023-04-13 08:00] VITALS: RESP 14; O2SAT 97
[2023-04-13 10:00] VITALS: BP 111/60; PULSE 73; RESP 14; TEMP 97.3; O2SAT 97
[2023-04-13] MEDS ORDERED: iohexol 300mg/ml 100ml inj. ONE (10:16)
[2023-04-13 18:00] VITALS: BP 115/55; PULSE 76; RESP 14; TEMP 97.5; O2SAT 94
--- NOTE | 2023-04-13 18:00 | NUR ---
Patient in room ORTHO 4008. I have received report from RAY Dickson and had the opportunity to ask questions and assume patient care.
--- NOTE | 2023-04-13 18:14 | NUR ---
Problems reprioritized. Patient report given, questions answered & plan of care reviewed with Alicja INIGUEZ.
[2023-04-13] MEDS: atorvastatin 20mg tablet PO SCH (20:45)
[2023-04-13 22:00] VITALS: BP 116/50; PULSE 80; RESP 16; TEMP 97.8; O2SAT 92
[2023-04-14 06:00] VITALS: BP 125/53; PULSE 63; RESP 16; TEMP 97; O2SAT 96
--- NOTE | 2023-04-14 06:21 | NUR ---
Problems reprioritized. Patient report given, questions answered & plan of care reviewed with RAY Chisholm.
[2023-04-14 08:00] VITALS: RESP 16; O2SAT 100
[2023-04-14] MEDS: citalopram 20mg tablet PO SCH (08:29)
[2023-04-14] MEDS: zinc oxide ointment 30gm tube TP SCH ×2 (08:29→20:08)
[2023-04-14] MEDS: oxybutynin 5mg tablet PO SCH ×2 (08:29→20:08)
[2023-04-14] MEDS: memantine 5mg tablet PO SCH (08:29)
[2023-04-14] MEDS: flecainide 50mg tablet PO SCH ×2 (08:29→20:08)
[2023-04-14] MEDS: amLODIPine 5mg tablet PO SCH (08:29)
[2023-04-14] MEDS: apixaban 2.5mg tablet PO SCH ×2 (08:29→20:08)
[2023-04-14 10:00] VITALS: BP 106/57; PULSE 89; RESP 18; TEMP 98.1; O2SAT 96
--- NOTE | 2023-04-14 17:08 | NUR ---
Agree with assessment by Hilario BELL.
[2023-04-14 18:00] VITALS: BP 117/56; PULSE 80; RESP 16; TEMP 98.6; O2SAT 95
--- NOTE | 2023-04-14 18:10 | NUR ---
Problems reprioritized. Patient report given, questions answered & plan of care reviewed with HIRA Beck.
[2023-04-14 20:00] VITALS: RESP 17; O2SAT 96
[2023-04-14] MEDS: atorvastatin 20mg tablet PO SCH (20:08)
[2023-04-14 22:00] VITALS: BP 124/51; PULSE 72; RESP 18; TEMP 98.2; O2SAT 95
--- NOTE | 2023-04-15 06:30 | NUR ---
Patient in room [facility] 4008. I have received report from HIRA Beck and had the opportunity to ask questions and assume patient care.
[2023-04-15 08:00] VITALS: RESP 16; O2SAT 99
[2023-04-15] MEDS: zinc oxide ointment 30gm tube TP SCH ×2 (08:00→20:34)
[2023-04-15] MEDS: citalopram 20mg tablet PO SCH (08:11)
[2023-04-15] MEDS: memantine 5mg tablet PO SCH (08:11)
[2023-04-15] MEDS: apixaban 2.5mg tablet PO SCH ×2 (08:11→20:32)
[2023-04-15] MEDS: oxybutynin 5mg tablet PO SCH ×2 (08:11→20:32)
[2023-04-15] MEDS: flecainide 50mg tablet PO SCH ×2 (08:11→20:32)
[2023-04-15] MEDS: amLODIPine 5mg tablet PO SCH (08:14)
[2023-04-15 10:00] VITALS: BP 120/52; PULSE 72; RESP 13; TEMP 98.2; O2SAT 95
[2023-04-15 18:00] VITALS: BP 120/59; PULSE 69; RESP 13; TEMP 97.7; O2SAT 96
--- NOTE | 2023-04-15 18:38 | NUR ---
Problems reprioritized. Patient report given, questions answered & plan of care reviewed with HIRA Benites.
[2023-04-15] MEDS: atorvastatin 20mg tablet PO SCH (20:32)
[2023-04-15 22:00] VITALS: BP 104/38; PULSE 73; RESP 16; TEMP 98.7; O2SAT 93
[2023-04-16 06:00] VITALS: BP 118/47; PULSE 65; RESP 14; TEMP 97.3; O2SAT 96
--- NOTE | 2023-04-16 06:20 | NUR ---
Patient in room [facility]TH[facility] 4008. I have received report from HIRA Benites and had the opportunity to ask questions and assume patient care.
[2023-04-16 08:00] VITALS: RESP 14; O2SAT 96
[2023-04-16] MEDS: apixaban 2.5mg tablet PO SCH (08:08)
[2023-04-16] MEDS: citalopram 20mg tablet PO SCH (08:08)
[2023-04-16] MEDS: memantine 5mg tablet PO SCH (08:08)
[2023-04-16] MEDS: flecainide 50mg tablet PO SCH (08:08)
[2023-04-16] MEDS: oxybutynin 5mg tablet PO SCH (08:08)
[2023-04-16 08:09] VITALS: BP_SYST 118; PULSE 65
[2023-04-16] MEDS: amLODIPine 5mg tablet PO SCH (08:09)
[2023-04-16] MEDS: zinc oxide ointment 30gm tube TP SCH (08:14)
[2023-04-16 10:53] LABS: BASOPHILS # (AUTO) 0.1 X10'3 (0-0.2); EOSINOPHILS # (AUTO) 0.3 X10'3 (0-0.9); HEMOGLOBIN 11.8 g/dl (12.0-16.0); RED CELL DISTRIBUTION WIDTH 15.9 % (11.5-14.5); WHITE BLOOD COUNT 15.6 X10'3 (4.5-11.0)
[2023-04-16 10:54] LABS: BASOPHILS % (AUTO) 0.7 % (0-1); EOSINOPHILS % (AUTO) 1.8 % (0-6); HEMATOCRIT 36.6 % (35.0-45.0); LYMPHOCYTES # (AUTO) 6.3 X10'3 (1.1-4.8); LYMPHOCYTES % (AUTO) 40.1 % (21-51); MEAN CORPUSCULAR HGB CONC 32.3 g/dL (33.0-36.5); MEAN CORPUSCULAR VOLUME 89.7 FL (78-98); MEAN PLATELET VOLUME 9.2 FL (7.4-10.4); MONOCYTES # (AUTO) 1.1 X10'3 (0-0.9); NEUTROPHILS # (AUTO) 7.9 X10'3 (1.8-7.7); NEUTROPHILS % (AUTO) 50.4 % (42-75); PLATELET COUNT 220 X10'3 (140-440); RED BLOOD COUNT 4.08 X10'6 (4.20-5.60)
[2023-04-16 11:01] LABS: ALBUMIN 3.1 G/DL (3.4-5.0); ANION GAP 7 (8-16); BLOOD UREA NITROGEN 25 MG/DL (7-18); BUN/CREATININE RATIO 36.2 (10.0-20.0); CALCIUM 8.6 MG/DL (8.5-10.1); CHLORIDE 104 MMOL/L (99-107); CREATININE 0.69 MG/DL (0.40-0.90); GLUCOSE 93 MG/DL (70-104); POTASSIUM 4.1 MMOL/L (3.5-5.1); SODIUM 139 MMOL/L (135-145); TOTAL CARBON DIOXIDE 27.8 MMOL/L (24-32); eCRCL 45 ML/MIN; eGFR 80 ML/MIN
--- NOTE | 2023-04-16 18:16 | NUR ---
Pt stable for transfer. Report called to [facility] and given to RAY Siegel. IV discontinued prior to d/c. Patients son in law present at time of discharge. Patient was assisted via wheelchair by [facility] personnel and transferred in [facility] to [facility].
== END 2023-04-16 18:24 | DRG 872 ==
LOC: ER 11:19 → ED HOLD 15:59 → EDBEDREQ 04-04 05:37 → ORTHO 4S 04-04 11:15
PROVIDERS: ADMIT Family Medicine; ATTEND Family Medicine
PROC: BW211ZZ Computerized Tomography (CT Scan) of Abdomen and Pelvis using Low Osmolar Contrast (ICD-10-PCS; principal; 2023-04-03)
PROC: BW211ZZ Computerized Tomography (CT Scan) of Abdomen and Pelvis using Low Osmolar Contrast (ICD-10-PCS; 2023-04-13)
DX: A41.9 Sepsis, unspecified organism (principal); A04.72 Enterocolitis due to Clostridium difficile, not specified as recurrent; N39.0 Urinary tract infection, site not specified; E44.1 Mild protein-calorie malnutrition; I48.91 Unspecified atrial fibrillation; E86.0 Dehydration; N32.81 Overactive bladder; F03.90 Unspecified dementia, unspecified severity, without behavioral disturbance, psychotic disturbance, mood disturbance, and anxiety; F32.A Depression, unspecified; L89.91 Pressure ulcer of unspecified site, stage 1; E87.6 Hypokalemia; I10 Essential (primary) hypertension; Z88.2 Allergy status to sulfonamides; Z79.01 Long term (current) use of anticoagulants; Z79.899 Other long term (current) drug therapy; Z85.3 Personal history of malignant neoplasm of breast; Z68.27 Body mass index [BMI] 27.0-27.9, adult; Z86.73 Personal history of transient ischemic attack (TIA), and cerebral infarction without residual deficits
CPT/HCPCS: 36415; 71045; 74177; 80048; 80053; 81001; 83605; 83690; 83735; 84100; 85007; 85025; 85610; 85730; 87040; 87077; 87088; 87186; 87324; 87449; 97116; 97161; 97164; 97530; 99285; A4333; A6213; A6250; A6253; A6449; C1758; G0378; J3480; J3490; J7030; Q9963; Q9967